=== PATIENT | female | born 1945 | race Native Hawaiian/Other Pacific Islander ===

== ENCOUNTER → 2018-06-28 11:51 | Outpatient (CLI) | payer MEDICARE, OTHER, SELFPAY ==
[2018-06-28 12:30] LABS: Reticulocyte Count, Percent 1.1 % (1.06-2.63)
[2018-06-28 12:31] LABS: Hematocrit 33.8 % (36-46); Mean Corpuscular HGB Conc 32.6 % (30-36); Mean Corpuscular Hemoglobin 30.2 PG (26-34); Mean Corpuscular Volume 92.5 fL (80-100); Platelet Count 234 X10^3/uL (150-400); Red Blood Cell Count 3.65 X10^6/uL (4.0-5.2); Red Cell Distribution Width 12.8 % (11.6-14.8); White Blood Cell Count 5.9 X10^3/uL (4.5-11.0)
[2018-06-28 18:06] LABS: Hemoglobin A1C% w Est Avg Glu 6.9 % (4.0-6.0)
[2018-06-28 18:39] LABS: BUN Creatinine Ratio 16.8 (6-22); Blood Urea Nitrogen 47 mg/dL (7-17); Calcium 8.7 mg/dL (8.4-10.2); Carbon Dioxide 23 mmol/L (22-32); Chloride 109 mmol/L (98-107); Estimated Glomerular Filt Rate 16.7 mL/min (>60); Glucose 133 mg/dL (80-110); HEMOLYSIS < 15 (0-50); Sodium 148 mmol/L (137-145)
[2018-06-28 18:41] LABS: Potassium 5.7 mmol/L (3.4-5.1)
[2018-06-28 19:44] LABS: Folate 13.9 ng/mL (2.76-20.0); Vitamin B12 361 pg/mL (239-931)
== END ==
PROVIDERS: PCP Student in an Organized Health Care Education/Training Program; Visit Provider Student in an Organized Health Care Education/Training Program
DX: D64.9 Anemia, unspecified (principal); N17.9 Acute kidney failure, unspecified; N18.9 Chronic kidney disease, unspecified; E55.9 Vitamin D deficiency, unspecified; F03.90 Unspecified dementia, unspecified severity, without behavioral disturbance, psychotic disturbance, mood disturbance, and anxiety; E11.9 Type 2 diabetes mellitus without complications
CPT/HCPCS: 36415; 80048; 82306; 82607; 82728; 82746; 83036; 85027; 85045

== ENCOUNTER → 2018-07-16 11:21 | Outpatient (CLI) | payer MEDICARE, OTHER, SELFPAY | PROVIDERS: Family Provider Family Medicine; PCP Student in an Organized Health Care Education/Training Program; Visit Provider Student in an Organized Health Care Education/Training Program | DX: Z13.820 Encounter for screening for osteoporosis (principal); M81.0 Age-related osteoporosis without current pathological fracture; Z78.0 Asymptomatic menopausal state; Z87.891 Personal history of nicotine dependence | CPT/HCPCS: 77080 ==

== ENCOUNTER 2018-12-28 06:49 | Day surgery (SDC) | payer MEDICARE, OTHER, SELFPAY ==
[2018-12-28] VITALS (8 sets, daily range): BP systolic 150–196; BP diastolic 73–91; PULSE 64–96; RESP 12–16; TEMP 35.9–36.2; O2SAT 97–100; BMI 21.6
--- NOTE | 2018-12-28 | PATH_ITS ---
[facility] Accession Number: [id number] . 01 Material submitted: . colon - COLON POLYP BIOPSY AT 10CM . 02 Diagnosis: Colon, Polyp at 10 cm, Biopsy: Hyperplastic polyp. [facility]/12/29/2018 . 02 Electronically signed: . Jacquie Rivas MD, Pathologist NPI- [id number] . 01 Gross description: . COLON POLYP BIOPSY AT 10CM: Received in formalin are 2 fragment(s) of quarles, soft tissue measuring 0.2 x 0.2 x 0.2 cm to 0.6 x 0.2 x 0.1 cm which is entirely submitted and submitted entirely in 1 cassette(s) /DMC /DMC . 02 Pathologist provided ICD-10: K63.5 . 02 CPT . 564714 Performed at: 01 [facility] [address] [id number] MD Pilo Parekh MD Phone: [phone] Performed at: 02 [facility] [address] [place], [place] [id number] MD Jacquie Rivas MD Phone: [phone]
[2018-12-28] MEDS: SODIUM CHLORIDE 0.9% 1,000 ML 200 ML IV (07:35)
[2018-12-28] MEDS: MIDAZOLAM 5 MG/5 ML VIAL IV (07:53)
[2018-12-28] MEDS: fentaNYL 250 MCG/5 ML INJ IV (07:54)
--- NOTE | 2018-12-28 08:01 | PM.HP.1 ---
History of Present Illness Date Patient Seen: 12/28/18 Time Patient Seen: 08:01 Chief complaint: [id number] SCREENING COLONOSCOPY Narrative: Patient is here for a screening colonoscopy. Patient History Medical History Eczema (Chronic) Dementia with behavioral disturbance (09/06/15) Essential hypertension (Chronic 09/06/15) Failure to thrive in adult (09/06/15) History of stroke (09/06/15) Mixed hyperlipidemia (09/06/15) Osteoporosis (09/06/15) Type 2 diabetes mellitus without complication (Chronic 09/06/15) Balance problems (11/04/16) Weakness of both lower extremities (11/04/16) Agitation (10/16/17) Cramps of lower extremity (Chronic 11/02/17) Anorexia (Chronic ~2014) B12 deficiency (Chronic) Chronic renal insufficiency (Chronic) Dementia (Chronic) Diabetes (Chronic) Glaucoma (Chronic) Hyperlipemia (Chronic) Hypertension (Chronic) Macular degeneration, dry (Chronic) Osteoporosis (Chronic) Stroke (Chronic ~1991) Surgical History History of cataract removal with insertion of prosthetic lens (2007) Status post cholecystectomy (1979) Status post dilation and curettage (1979) Family History Father No problems noted. Mother No problems noted. Social History household members: spouse Smoking Status: Never smoker Family & Social History Family History Father No problems noted. Mother No problems noted. Social History: household members spouse Tobacco & Substance use: Smoking Status Never smoker Meds Home Medications Medication Instructions Recorded Confirmed Type Walker: Four Wheel 0 dev #1 09/29/16 06/22/18 Rx Disabled Parking Permit ea #1 03/26/17 06/22/18 Rx clotrimazole-betamethasone 1 1 applictn TOP BID #45 gram 03/18/18 06/22/18 Rx %-0.05 % topical cream cyclobenzaprine 10 mg tablet 10 mg PO DAILY PRN #30 tab 11/29/18 Rx Allergies Allergy/AdvReac Type Severity Reaction Status Date / Time No Known Drug Allergies Allergy Verified 12/28/18 07:12 Review of Systems Review of Systems Patient suffers from hypertension. She has had a stroke that has left her with difficulty walking and a little dementia. She uses a walker at home. No chest pain actively. She is a diabetic. Her sugars 147 this morning. Patient has a history of kidney stones. Exam Vital Signs (past 8 hours): - 12/28/18 07:27 Temperature 97.1 F L Pulse Rate 96 H Respiratory Rate 16 Blood Pressure 196/91 H Pulse Oximetry 99 Oxygen Delivery Method Room Air Narrative Exam Narrative: Pleasant cooperative patient no apparent distress. Lungs are clear to auscultation. No rales or rhonchi. Heart regular rate and rhythm no murmur gallop. Abdomen is soft nontender without mass. No obvious hernias. Patient is alert and oriented x3. Walks with a walker. Quite frail. Assessment & Plan Assessment & Plan narrative: The patient for a screening colonoscopy. I have discussed the procedure with them. Risks of bleeding, perforation which would necessitate major operation, failure to find remove all lesions, the potential tattoo were all discussed. All questions were answered. They wished to proceed.
--- NOTE | 2018-12-28 08:04 | PM.PREOP ---
Pre-operative Note Interval Note History & Physical reviewed/Exam performed by Physician: Yes Changes to H&P: No ASA Class (for procedural sedation): III
--- NOTE | 2018-12-28 08:48 | PM.OP.ENDO ---
Operative Date/Time/Diagnoses Date of procedure: 12/28/18 Time of procedure: 08:48 Pre-op diagnosis: Screening examination. Last colonoscopy 15-20 years ago. Post-op diagnosis: same (Sigmoid diverticulosis. One tiny polyp like lesion in the rectum. May not be neoplastic.) Procedure & Clinicians Study performed: Colonoscopy with cold biopsy Same procedure as scheduled: Yes Indications: Screening Surgeon: Damion Jiemnez Procedure Notes SCOAP/Timeout: Performed Procedure in detail: The patient was placed in the left lateral decubitus position and underwent IV sedation directed by the surgeon consisting of fentanyl and Versed. Digital exam was remarkable for lax sphincter. No palpable masses.. The scope was inserted and advanced through the rectum into the sigmoid, descending, transverse, and ascending colon. In the sigmoid I noted diverticulosis. The colon was somewhat tortuous. Pressure was applied.. The cecum was reached identified by the ileocecal valve and the appendiceal opening. The scope was gradually brought out. One Polyp was found at 10 cm from the anal verge. I attempted to retroflex the scope in the rectum. I was unable to do soap. Therefore I slowly withdrew the scope through the anal canal. The appearance was normal. The scope was removed and the patient tolerated the procedure well. The prep was very good. Scope withdrawal time: 12 min excludes biopsy time Sedation minutes: 32 Findings: diverticulosis (Sigmoid) and polyp (Possible polyp at 10 cm. ) Specimen(s): other (Possible polyp) Complications: none Recommendations: Other recommendation (If polyp neoplastic 5 year follow-up. If not neoplastic then no follow-up due to age and overall health) Plan for aftercare: Patient should see family doctor soon regarding elevated blood pressure a and sugars. Follow up: as needed Disposition: PACU
[2018-12-28] MEDS: ONDANSETRON 4 MG/2 ML INJ IV (09:06)
--- NOTE | 2018-12-28 09:10 | SUR.PHASEI ---
pt vomited small amt of light green fluid. Medicated with zofran per Dr. Jimenez.
== END 2018-12-28 10:55 | disposition home or self-care (01) ==
PROVIDERS: PCP Student in an Organized Health Care Education/Training Program; Visit Provider Specialist
PROC: 0DJD8ZZ Inspection of Lower Intestinal Tract, Via Natural or Artificial Opening Endoscopic (ICD-10-PCS; CPT 45378; principal; 2018-12-28 07:45)
DX: Z12.11 Encounter for screening for malignant neoplasm of colon (principal); K57.30 Diverticulosis of large intestine without perforation or abscess without bleeding; I10 Essential (primary) hypertension; E11.9 Type 2 diabetes mellitus without complications; I69.311 Memory deficit following cerebral infarction; I69.398 Other sequelae of cerebral infarction; K63.5 Polyp of colon
CPT/HCPCS: 45380; 88305; 99152; 99153; J2250; J2405; J3010

== ENCOUNTER → 2019-02-14 11:50 | Outpatient (CLI) | payer MEDICARE, OTHER, SELFPAY ==
[2019-02-14 12:43] LABS: Blood Urea Nitrogen 60 mg/dL (7-17); Calcium 9.1 mg/dL (8.4-10.2); Carbon Dioxide 23 mmol/L (22-32); Chloride 109 mmol/L (98-107); Estimated Glomerular Filt Rate 15.4 mL/min (>60); Glucose 123 mg/dL (80-110); HEMOLYSIS < 15 (0-50); Sodium 142 mmol/L (137-145)
[2019-02-14 12:44] LABS: Potassium 5.8 mmol/L (3.4-5.1)
[2019-02-14 14:58] LABS: Hemoglobin A1C% w Est Avg Glu 6.6 % (4.0-6.0)
== END ==
PROVIDERS: PCP Student in an Organized Health Care Education/Training Program; Visit Provider Student in an Organized Health Care Education/Training Program
DX: E11.9 Type 2 diabetes mellitus without complications (principal); N18.9 Chronic kidney disease, unspecified
CPT/HCPCS: 36415; 80048; 83036

== ENCOUNTER 2019-04-18 16:10 | Emergency (ER) | payer MEDICARE, OTHER, SELFPAY ==
[2019-04-18 16:18] VITALS: BP 143/58; PULSE 71; RESP 24; TEMP 36.6; O2SAT 100
--- NOTE | 2019-04-18 17:13 | ED_ITS ---
HPI - Abdominal Pain General Chief Complaint: Abdominal Pain Stated Complaint: upset stomach and pains in tears Time Seen by Provider: 04/18/19 17:10 Source: patient Mode of arrival: ambulatory Limitations: no limitations History of Present Illness HPI narrative: Patient is 74-year-old female who presents with epigastric pain and vomiting and chest pain. Her states this is about the 3rd episode she has had of this past few weeks. This apparently started today. She just started vomiting since she has been in the emergency department. But she is quite uncomfortable and actively vomiting. She has not had any fever chills. complaint: abdominal pain Onset (ago): hour(s) Pain Consistency: constant Location: epigastric Quality: cramping Migration to: no migration Relieving factors: nothing Exacerbating factors: nothing Related Data Home Medications Medication Instructions Recorded Confirmed Disabled Parking Permit 1 ea MISCELLANEOUS DIRECTED 04/18/19 04/18/19 Vitamin D3 1 cap PO DAILY 04/18/19 04/18/19 Walker: Four Wheel 1 dev MISCELLANEOUS DIRECTED 04/18/19 04/18/19 amlodipine 7.5 mg PO QPM 04/18/19 04/18/19 cyclobenzaprine 10 mg PO QPM 04/18/19 04/18/19 latanoprost 1 drp EYE-LEFT DAILY 04/18/19 04/18/19 Allergies Allergy/AdvReac Type Severity Reaction Status Date / Time No Known Drug Allergies Allergy Verified 01/07/19 14:10 Review of Systems Review of Systems Narrative: GENERAL: Denies chills, fatigue, malaise, fever, sweats, travel HEENT: Denies sinus pain, ear pain, sore throat, difficulty swallowing, neck pain RESPIRATORY: Denies dyspnea, cough, wheezing, hemoptysis, sputum. CARDIOVASCULAR: See HPI GASTROINTESTINAL: See HPI : Denies dysuria, frequency, incontinence, hematuria, urinary retention, flank pain. MUSCULOSKELETAL: Denies weakness, joint pain, or bony pain SKIN: No rash, no erythema, no pruritus NEUROLOGIC: Denies weakness, dizziness, headache, numbness, change in speech, confusion PSYCHIATRIC: No concerning psychosocial issues. 12 point review of systems is negative except for those stated above and HPI PFSH Medical History Agitation (10/16/17) Anorexia (Chronic ~2014) B12 deficiency (Chronic) Balance problems (11/04/16) Chronic renal insufficiency (Chronic) Cramps of lower extremity (Chronic 11/02/17) Dementia (Chronic) Dementia with behavioral disturbance (09/06/15) Diabetes (Chronic) Eczema (Chronic) Essential hypertension (Chronic 09/06/15) Failure to thrive in adult (09/06/15) Glaucoma (Chronic) History of stroke (09/06/15) Hyperlipemia (Chronic) Hypertension (Chronic) Macular degeneration, dry (Chronic) Mixed hyperlipidemia (09/06/15) Osteoporosis (09/06/15) Osteoporosis (Chronic) Stroke (Chronic ~1991) Type 2 diabetes mellitus without complication (Chronic 09/06/15) Weakness of both lower extremities (11/04/16) Surgical History History of cataract removal with insertion of prosthetic lens (2007) Status post cholecystectomy (1979) Status post dilation and curettage (1979) Family History Father No problems noted. Mother No problems noted. Social History household members: spouse Smoking Status: Never smoker Family History Father No problems noted. Mother No problems noted. Social History household members: spouse Smoking Status: Never smoker Exam Initial Vital Signs Initial Vital Signs: Vital Signs Temperature 97.9 F 04/18/19 16:18 Pulse Rate 71 04/18/19 16:18 Respiratory Rate 24 04/18/19 16:18 Blood Pressure 143/58 H 04/18/19 16:18 Pulse Oximetry 100 04/18/19 16:18 GENERAL: Actively vomiting at thin frail elderly female HEENT: Head atraumatic,EOMI, pupils reactive, face symmetric, CARDIOVASCULAR: Regular rate and rhythm without murmurs, rubs or gallops. RESPIRATORY: Breath sounds equal bilaterally, no wheezes rales or rhonchi. ABDOMEN: Soft, tender epigastric area Normoactive bowel sounds all 4 quadrants. No guarding or rebound. : No CVA tenderness EXTREMITIES: Normal range of motion, no clubbing or edema. Neurovascularly intact NEUROLOGICAL: Moving all extremities no gross deficits SKIN: Warm, dry, no laceration, no petechiae, no rashes or lesions. Course Orders Ordered: ED Orders 04/18/19 16:26 EKG-12 Lead Routine 04/18/19 16:50 Complete Blood Count AUTO DIFF Stat Comprehensive Metabolic Panel Stat Lipase Stat Troponin & CK Cardiac Panel Stat 04/18/19 17:43 CT abdomen pelvis wo con Stat US abdomen limited Stat Lactated Ringer's (Lactated Ringers) 1,000 mls @ 250 mls/hr IV CONT MORGAN Last Admin: 04/18/19 19:38 Dose: 250 mls/hr Documented by: SHER Discontinued Medications Sodium Chloride (Normal Saline 0.9%) 1,000 mls @ 1,000 mls/hr IV BOLUS ONE Stop: 04/18/19 18:20 Last Infusion: 04/18/19 19:39 Dose: 0 mls/hr Documented by: Admin: 04/18/19 17:36 Dose: 1,000 mls/hr Documented by: TAPAN Sodium Chloride (Normal Saline 0.9%) 1,000 mls @ 1,000 mls/hr IV BOLUS ONE Stop: 04/18/19 19:20 Last Infusion: 04/18/19 19:39 Dose: 0 mls/hr Documented by: Admin: 04/18/19 18:57 Dose: 1,000 mls/hr Documented by: TAPAN Morphine Sulfate (Morphine) 2 mg IV NOW ONE Stop: 04/18/19 18:23 Last Admin: 04/18/19 18:57 Dose: 2 mg Documented by: TAPAN Ondansetron HCl (Zofran) 4 mg IV NOW ONE Stop: 04/18/19 17:22 Last Admin: 04/18/19 17:36 Dose: 4 mg Documented by: TAPAN Consultations Consultation #1: dR. Shiv MORTON at [facility] agrees with transfer and patient does likely needed ERCP. Request disc and images pushed along with reports. Admit to hospitalist. Time: 19:21 Consultation #2: Dr. Deidra Roca hospitalist at [facility] has been updated patient's symptoms test results and accepts patient for transfer. Time: 19:42 Vital Signs Vital signs: Vital Signs - 8 hr 04/18/19 16:18 04/18/19 17:32 04/18/19 19:12 Temperature 97.9 F Pulse Rate 71 18 L 92 H Respiratory Rate 24 80 H 23 Blood Pressure 143/58 H Blood Pressure [Right Arm] 145/70 H 170/63 H Pulse Oximetry 100 93 96 MDM - Abdominal Pain Lab Data Attestation: I reviewed the patient's lab results. Result diagrams: 04/18/19 16:50 04/18/19 16:50 Labs: Lab Results 04/18/19 04/18/19 04/18/19 Range/Units 16:50 16:50 16:50 WBC 9.1 (4.5-11.0) X10^3/uL RBC 3.22 L (4.0-5.2) X10^6/uL Hgb 9.7 L (12.0-16.0) g/dL Hct 29.6 L (36-46) % MCV 91.8 (80-100) fL MCH 30.0 (26-34) PG MCHC 32.7 (30-36) % RDW 14.3 (11.6-14.8) % Plt Count 378 (150-400) X10^3/uL Neut % (Auto) 89.6 H (50-75) % Lymph % (Auto) 4.5 L (25-40) % Coffey % (Auto) 4.8 (3-14) % Eos % (Auto) 0.5 L (2-4) % Baso % (Auto) 0.6 (0-2) % Neut # (Auto) 8200 H (4014-9478) /uL Lymph # (Auto) 400 L (2339-9153) /uL Coffey # (Auto) 400 (0-900) /uL Eos # (Auto) 0 (0-450) /uL Baso # (Auto) 100 (0-100) /uL Sodium 142 (137-145) mmol/L Potassium 5.0 (3.4-5.1) mmol/L Chloride 108 H (98-107) mmol/L Carbon Dioxide 19 L (22-32) mmol/L BUN 52 H (7-17) mg/dL Creatinine 3.30 H (0.52-1.04) mg/dL Estimated GFR 13.7 L (>60) mL/min BUN/Creatinine Ratio 15.8 (6-22) Glucose 303 H (80-110) mg/dL Calcium 9.4 (8.4-10.2) mg/dL Total Bilirubin 2.2 H (0.2-1.3) mg/dL AST 153 H (14-36) IU/L ALT 158 H (9-52) IU/L Alkaline Phosphatase 276 H (38-126) U/L Total Creatine Kinase 33 (30-135) U/L CK-MB (CK-2) TNP CK-MB (CK-2) Rel Index TNP Troponin I < 0.012 (0.01-0.034) ng/mL Total Protein 7.7 (6.3-8.2) g/dL Albumin 4.1 (3.5-5.0) g/dL Globulin 3.6 (1.7-4.1) g/dL Albumin/Globulin Ratio 1.1 (1.0-2.8) Lipase 2698 H (23-300) U/L Imaging Data CT scan - abdomen: Radiologist's impression: PROCEDURE: CT ABDOMEN PELVIS WO CON INDICATIONS: vomiting pain TECHNIQUE: Noncontrast 5 mm thick sections acquired from the diaphragms to the symphysis. 5 mm coronal and sagittal reformats were then performed. For radiation dose reduction, the following was used: automated exposure control, adjustment of mA and/or kV according to patient size. COMPARISON: [facility], , ABDOMEN LIMITED, 04/18/2019, 17:53. FINDINGS: Image quality: Excellent. ABDOMEN: Lung bases: Lung bases are clear. Heart size is normal. A small hiatal hernia is incidentally noted. Solid organs: Liver is normal in size. Gallbladder has been removed. Biliary dilatation is seen, which is more prominent than would be expected for a post cholecystectomy patient, measuring approximately 1.4 cm. There is prominent intrahepatic biliary ductal dilatation seen. Pancreas is normal in contours. Spleen is normal in size. No adrenal nodules. The kidneys are atrophic. No stones are seen. No hydronephrosis can be seen. Peritoneum and bowel: Unenhanced bowel loops demonstrate normal wall thickness and caliber. No free fluid or air. Nodes and vessels: No retroperitoneal or mesenteric adenopathy by size criteria. Aorta and inferior vena cava are normal in caliber. Atherosclerotic calcification is noted. Miscellaneous: No ventral hernias. PELVIS: Genitourinary: Bladder wall thickness is normal. The uterus is atrophic and partially calcified. Miscellaneous: No inguinal hernias or adenopathy. Bones: No suspicious bony lesions. No vertebral body compression fractures. There is right proximal femur hardware seen. Mild levoconvex scoliotic curvature is noted. Age-appropriate bony degenerative changes are seen, which are most prominent involving the L5-S1 level. IMPRESSION: Extrahepatic and intrahepatic biliary ductal dilatation can be seen, which is more prominent than would be expected for a post cholecystectomy patient. As clinically appropriate, an MRCP could be considered for further evaluation (assuming that there is no contraindication to MRI). Incidental note is made of: Small hiatal hernia Atrophic kidneys Cholecystectomy clips Atherosclerotic calcification Atrophic, partially calcified uterus Levoconvex scoliotic curvature Focal L5-S1 degenerative change Right proximal femur hardware Dictated by: Arnaldo Barrios M.D. on 04/18/2019 at 17:24 US - abdomen: Radiologist's impression: PROCEDURE: US ABDOMEN LIMITED INDICATIONS: PAIN WITH ELEVATED LIVER ENZYMES TECHNIQUE: Real-time focused scanning was performed of the right upper quadrant, with image documentation. COMPARISON: [facility], CT, CT ABDOMEN PELVIS WO CON, 04/18/2019, 18:11. FINDINGS: The gallbladder is surgically absent. There is intra-and extrahepatic biliary ductal dilatation. The common bile duct measures up to 1.5 cm distally with an ovoid filling defect distally measuring up to 1.9 x 1.1 x 0.9 cm suggestive of a common duct stone. No associated internal vascularity or posterior acoustic shadowing. The right kidney measures up to 8.5 cm without hydronephrosis. There is right renal cortical thinning noted. There is also increased echogenicity of the right renal cortex. IMPRESSION: 1. Biliary ductal dilatation with a filling defect in the distal common bile duct suggestive of a large common duct stone. The differential is a mass although the appearance is atypical. 2. Small right kidney with increased cortical echogenicity suggestive of medical renal disease. Dictated by: Pilo Ramos M.D. on 04/18/2019 at 18:40 ECG Data Attestation: I personally reviewed and interpreted this ECG as follows: Prior ECG tracings: not available for review Interpretation: Sinus rhythm rate 60 p.r. interval 201 QRS 80 [address] changes or Q-wave noted in lead 3 and AVF MDM Narrative Medical decision making narrative: Bilirubin liver enzymes and lipase are all elevated. Ultrasound does show large stone in common bile duct. Patient will likely need ERCP which is unavailable at [facility]. Patient did receive a small amount of morphine which seemed to help a little bit with pain. She is urinating in the emergency department.. Patient will be transferred to [facility] to higher level of care. She is hemodynamically stable. Critical Care Time Critical Care Time Critical Care Time: Yes Total Critical Care Time: 30 Attestation: The high probability of a clinically significant, sudden or life threatening deterioration of the [cardiovascular] system(s) required my full and direct attention, intervention and personal management. The aggregate critical care time was 30 minutes. This time is in addition to time spent performing re ported procedures but includes the following: [x] Data Review and interpretation [x] Patient assessment and monitoring of vital signs [x] Documentation [x] Medication orders and management Discharge Plan Departure Patient Disposition: [facility] Clinical Impression: Choledocholithiasis Acute pancreatitis Qualifiers: Pancreatitis type: biliary Acute pancreatitis complication: unspecified Qual ified Code(s): K85.10 - Biliary acute pancreatitis without necrosis or infection Prescriptions: No Action amlodipine 5 mg tablet 7.5 mg PO QPM RF: 0 Vitamin D3 1 cap PO DAILY RF: 0 cyclobenzaprine 10 mg tablet 10 mg PO QPM RF: 0 Disabled Parking Permit 1 ea miscellaneous DIRECTED RF: 0 Walker: Four Wheel 1 dev miscellaneous DIRECTED RF: 0 latanoprost 0.005 % drops 1 drp EYE-LEFT DAILY RF: 0 Referrals: Norm Arreola MD [Primary Care Provider] -
[2019-04-18 17:15] LABS: Alanine Aminotransferase 158 IU/L (9-52); Albumin 4.1 g/dL (3.5-5.0); Albumin Globulin Ratio 1.1 (1.0-2.8); Alkaline Phosphatase 276 U/L (38-126); Aspartate Aminotransferase 153 IU/L (14-36); BUN Creatinine Ratio 15.8 (6-22); Bilirubin Total 2.2 mg/dL (0.2-1.3); Blood Urea Nitrogen 52 mg/dL (7-17); Calcium 9.4 mg/dL (8.4-10.2); Carbon Dioxide 19 mmol/L (22-32); Chloride 108 mmol/L (98-107); Creatine Kinase 33 U/L (30-135); Estimated Glomerular Filt Rate 13.7 mL/min (>60); Globulin 3.6 g/dL (1.7-4.1); Glucose 303 mg/dL (80-110); HEMOLYSIS < 15 (0-50); Sodium 142 mmol/L (137-145); Total Protein 7.7 g/dL (6.3-8.2)
[2019-04-18 17:21] LABS: Add Manual Diff / Slide Review NO; Basophils Absolute Auto 100 /uL (0-100); Basophils Percent Auto 0.6 % (0-2); Eosinophils Absolute Auto 0 /uL (0-450); Eosinophils Percent Auto 0.5 % (2-4); Hematocrit 29.6 % (36-46); Hemoglobin 9.7 g/dL (12.0-16.0); Lymphocytes Absolute Auto 400 /uL (1100-4500); Lymphocytes Percent Auto 4.5 % (25-40); Mean Corpuscular HGB Conc 32.7 % (30-36); Mean Corpuscular Volume 91.8 fL (80-100); Monocytes Absolute Auto 400 /uL (0-900); Monocytes Percent Auto 4.8 % (3-14); Neutrophils Absolute Auto 8200 /uL (1500-7000); Neutrophils Percent Auto 89.6 % (50-75); Platelet Count 378 X10^3/uL (150-400); Red Blood Cell Count 3.22 X10^6/uL (4.0-5.2); Red Cell Distribution Width 14.3 % (11.6-14.8); White Blood Cell Count 9.1 X10^3/uL (4.5-11.0)
[2019-04-18 17:27] LABS: Troponin I < 0.012 ng/mL (0.01-0.034)
[2019-04-18 17:32] VITALS: BP 145/70; PULSE 18; RESP 80; O2SAT 93
[2019-04-18] MEDS: SODIUM CHLORIDE 0.9% 1,000 ML 1000 ML IV ×2 (17:36→18:57)
[2019-04-18] MEDS: ONDANSETRON 4 MG/2 ML INJ IV (17:36)
--- NOTE | 2019-04-18 17:43 | DI.US.S_ITS ---
PROCEDURE: US ABDOMEN LIMITED INDICATIONS: PAIN WITH ELEVATED LIVER ENZYMES TECHNIQUE: Real-time focused scanning was performed of the right upper quadrant, with image documentation. COMPARISON: [facility], CT, CT ABDOMEN PELVIS WO CON, 04/18/2019, 18:11. FINDINGS: The gallbladder is surgically absent. There is intra-and extrahepatic biliary ductal dilatation. The common bile duct measures up to 1.5 cm distally with an ovoid filling defect distally measuring up to 1.9 x 1.1 x 0.9 cm suggestive of a common duct stone. No associated internal vascularity or posterior acoustic shadowing. The right kidney measures up to 8.5 cm without hydronephrosis. There is right renal cortical thinning noted. There is also increased echogenicity of the right renal cortex. IMPRESSION: 1. Biliary ductal dilatation with a filling defect in the distal common bile duct suggestive of a large common duct stone. The differential is a mass although the appearance is atypical. 2. Small right kidney with increased cortical echogenicity suggestive of medical renal disease. Dictated by: Pilo Ramos M.D. on 04/18/2019 at 18:40 Approved by: Pilo Ramos M.D. on 04/18/2019 at 18:44
--- NOTE | 2019-04-18 17:43 | DI.CT.S_ITS ---
PROCEDURE: CT ABDOMEN PELVIS WO CON INDICATIONS: vomiting pain TECHNIQUE: Noncontrast 5 mm thick sections acquired from the diaphragms to the symphysis. 5 mm coronal and sagittal reformats were then performed. For radiation dose reduction, the following was used: automated exposure control, adjustment of mA and/or kV according to patient size. COMPARISON: [facility], ABDOMEN LIMITED, 04/18/2019, 17:53. FINDINGS: Image quality: Excellent. ABDOMEN: Lung bases: Lung bases are clear. Heart size is normal. A small hiatal hernia is incidentally noted. Solid organs: Liver is normal in size. Gallbladder has been removed. Biliary dilatation is seen, which is more prominent than would be expected for a post cholecystectomy patient, measuring approximately 1.4 cm. There is prominent intrahepatic biliary ductal dilatation seen. Pancreas is normal in contours. Spleen is normal in size. No adrenal nodules. The kidneys are atrophic. No stones are seen. No hydronephrosis can be seen. Peritoneum and bowel: Unenhanced bowel loops demonstrate normal wall thickness and caliber. No free fluid or air. Nodes and vessels: No retroperitoneal or mesenteric adenopathy by size criteria. Aorta and inferior vena cava are normal in caliber. Atherosclerotic calcification is noted. Miscellaneous: No ventral hernias. PELVIS: Genitourinary: Bladder wall thickness is normal. The uterus is atrophic and partially calcified. Miscellaneous: No inguinal hernias or adenopathy. Bones: No suspicious bony lesions. No vertebral body compression fractures. There is right proximal femur hardware seen. Mild levoconvex scoliotic curvature is noted. Age-appropriate bony degenerative changes are seen, which are most prominent involving the L5-S1 level. IMPRESSION: Extrahepatic and intrahepatic biliary ductal dilatation can be seen, which is more prominent than would be expected for a post cholecystectomy patient. As clinically appropriate, an MRCP could be considered for further evaluation (assuming that there is no contraindication to MRI). Incidental note is made of: Small hiatal hernia Atrophic kidneys Cholecystectomy clips Atherosclerotic calcification Atrophic, partially calcified uterus Levoconvex scoliotic curvature Focal L5-S1 degenerative change Right proximal femur hardware Dictated by: Arnaldo Barrios M.D. on 04/18/2019 at 17:24 Approved by: Arnaldo Barrios M.D. on 04/18/2019 at 17:28
[2019-04-18 18:06] LABS: Lipase 2698 U/L (23-300)
[2019-04-18] MEDS: MORPHINE 2 MG/ML INJ IV (18:57)
[2019-04-18 19:12] VITALS: BP 170/63; PULSE 92; RESP 23; O2SAT 96
[2019-04-18] MEDS: LACTATED RINGERS 1,000 ML 250 ML IV (19:38)
[2019-04-18 20:27] VITALS: TEMP 38.7
--- NOTE | 2019-04-18 20:51 | PC.NURSE ---
Temp spiked to 101.7. Dr Patterson made aware of VS and pt status. Orders received for Tylenol, blood cultures, and lactate. Pt assisted up to BSC. SpO2 dropped to 82% while up; recovered briskly to 95% Room air while in bed. Dr Patterson aware. [facility] now here for transport to [facility].
[2019-04-18 20:55] VITALS: TEMP 38.7
[2019-04-18] MEDS: ACETAMINOPHEN 325 MG TABLET 650 MG PO (20:55)
[2019-04-18 20:59] VITALS: BP 168/57; PULSE 110; RESP 26; O2SAT 95
[2019-04-18 21:19] LABS: Lactate (Lactic Acid) 1.9 mmol/L (0.7-2.1)
--- NOTE | 2019-04-18 21:40 | PC.NURSE ---
Report called to [facility] RN Ana at [phone]
[2019-04-19 16:15] LABS: Acinetobacter baumannii Not Detected (Not Detect); E. coli Detected (Not Detect); Enterococcus species Not Detected (Not Detect); KPC (carbapenem-resist gene) Not Detected (Not Detect); Listeria monocytogenes Not Detected (Not Detect); Staphylococcus species Not Detected (Not Detect); Streptococcus agalactiae (Gr B Not Detected (Not Detect); Streptococcus pneumonia Not Detected (Not Detect); Streptococcus pyogenes (Gr A) Not Detected (Not Detect); Streptococcus species Not Detected (Not Detect)
[2019-04-19 16:16] LABS: Candida albicans Not Detected (Not Detect); Candida glabrata Not Detected (Not Detect); Candida krusei Not Detected (Not Detect); Candida parapsilosis Not Detected (Not Detect); Candida tropicalis Not Detected (Not Detect); Enterobacter cloacae complex Not Detected (Not Detect); Enterobacteriaceae species Detected (Not Detect); Haemophilus influenzae Not Detected (Not Detect); Neisseria meningitidis Not Detected (Not Detect); Proteus species Not Detected (Not Detect); Pseudomonas aeruginosa Not Detected (Not Detect); Serratia marcescens Not Detected (Not Detect)
--- NOTE | 2019-05-09 14:21 | PC.NURSE ---
Late entry - per Audra Vivas RN, IV LR running upon transfer at 2106 at 250mL per hour with 500mL infused.
== END 2019-04-18 21:21 | disposition short-term general hospital (02) ==
PROVIDERS: Emergency Medicine; Emergency Provider Emergency Medicine; PCP Student in an Organized Health Care Education/Training Program
DX: K80.50 Calculus of bile duct without cholangitis or cholecystitis without obstruction (principal); K85.10 Biliary acute pancreatitis without necrosis or infection; R11.10 Vomiting, unspecified; R07.9 Chest pain, unspecified
CPT/HCPCS: 36415; 36591; 74176; 76705; 80053; 82550; 83605; 83690; 84484; 85025; 87040; 87150; 87186; 87205; 93005; 93010; 96361; 96374; 96375; 99285; J2270; J2405

== ENCOUNTER → 2019-04-28 11:41 | Outpatient (CLI) | payer MEDICARE, OTHER, SELFPAY ==
[2019-04-28 12:11] LABS: Add Manual Diff / Slide Review NO; Basophils Absolute Auto 100 /uL (0-100); Eosinophils Absolute Auto 100 /uL (0-450); Eosinophils Percent Auto 1.3 % (2-4); Hematocrit 27.1 % (36-46); Lymphocytes Absolute Auto 800 /uL (1100-4500); Lymphocytes Percent Auto 15.1 % (25-40); Mean Corpuscular HGB Conc 33.3 % (30-36); Mean Corpuscular Hemoglobin 30.2 PG (26-34); Mean Corpuscular Volume 90.7 fL (80-100); Monocytes Absolute Auto 400 /uL (0-900); Monocytes Percent Auto 7.9 % (3-14); Neutrophils Absolute Auto 4200 /uL (1500-7000); Neutrophils Percent Auto 74.7 % (50-75); Platelet Count 286 X10^3/uL (150-400); Red Blood Cell Count 2.99 X10^6/uL (4.0-5.2); Red Cell Distribution Width 14.4 % (11.6-14.8); White Blood Cell Count 5.6 X10^3/uL (4.5-11.0)
[2019-04-28 12:38] LABS: Alanine Aminotransferase 65 IU/L (9-52); Albumin 3.8 g/dL (3.5-5.0); Albumin Globulin Ratio 1.3 (1.0-2.8); Alkaline Phosphatase 101 U/L (38-126); Aspartate Aminotransferase 43 IU/L (14-36); BUN Creatinine Ratio 12.7 (6-22); Bilirubin Total 0.9 mg/dL (0.2-1.3); Blood Urea Nitrogen 33 mg/dL (7-17); Calcium 9.3 mg/dL (8.4-10.2); Carbon Dioxide 21 mmol/L (22-32); Chloride 107 mmol/L (98-107); Estimated Glomerular Filt Rate 18.1 mL/min (>60); Globulin 2.9 g/dL (1.7-4.1); Glucose 168 mg/dL (80-110); HEMOLYSIS < 15 (0-50); Potassium 3.9 mmol/L (3.4-5.1); Sodium 140 mmol/L (137-145); Total Protein 6.7 g/dL (6.3-8.2)
== END ==
PROVIDERS: PCP Student in an Organized Health Care Education/Training Program; Visit Provider Student in an Organized Health Care Education/Training Program
DX: K80.50 Calculus of bile duct without cholangitis or cholecystitis without obstruction (principal); K85.90 Acute pancreatitis without necrosis or infection, unspecified; N18.9 Chronic kidney disease, unspecified
CPT/HCPCS: 36415; 80053; 85025

== ENCOUNTER 2019-06-27 18:11 | Emergency (ER) | payer MEDICARE, OTHER, SELFPAY ==
--- NOTE | 2019-06-27 18:25 | DI.RAD.S_ITS ---
PROCEDURE: XR CHEST 1V INDICATIONS: chest pain TECHNIQUE: One view of the chest was acquired. COMPARISON: [facility], , CHEST 1 VIEW, 05/14/2015, 22:20. FINDINGS: Surgical changes and devices: None. Lungs and pleura: Lungs are clear. Prominence of the right hilum is redemonstrated, similar in appearance to the prior study, and likely reflecting vascular prominence. No pleural effusions or pneumothorax. There is a probable skin fold projecting over the medial left apex. Mediastinum: Mediastinal contours appear normal. Heart size is normal. Bones and chest wall: No suspicious bony lesions. Overlying soft tissues appear unremarkable. IMPRESSION: 1. No acute cardiopulmonary disease. Dictated by: Pilo Ramos M.D. on 06/27/2019 at 19:32 Approved by: Pilo Ramos M.D. on 06/27/2019 at 19:34
[2019-06-27 18:26] VITALS: BP 182/78; PULSE 84; RESP 20; TEMP 36.3; O2SAT 99
[2019-06-27 18:54] LABS: Add Manual Diff / Slide Review NO; Basophils Absolute Auto 0 /uL (0-100); Basophils Percent Auto 0.8 % (0-2); Eosinophils Absolute Auto 100 /uL (0-450); Hematocrit 32.7 % (36-46); Hemoglobin 10.9 g/dL (12.0-16.0); Lymphocytes Absolute Auto 1000 /uL (1100-4500); Lymphocytes Percent Auto 23.4 % (25-40); Mean Corpuscular HGB Conc 33.3 % (30-36); Mean Corpuscular Hemoglobin 30.7 PG (26-34); Mean Corpuscular Volume 92.3 fL (80-100); Monocytes Absolute Auto 300 /uL (0-900); Monocytes Percent Auto 7.7 % (3-14); Neutrophils Absolute Auto 2900 /uL (1500-7000); Neutrophils Percent Auto 66.1 % (50-75); Platelet Count 190 X10^3/uL (150-400); Red Blood Cell Count 3.54 X10^6/uL (4.0-5.2); Red Cell Distribution Width 13.7 % (11.6-14.8); White Blood Cell Count 4.3 X10^3/uL (4.5-11.0)
[2019-06-27 18:57] LABS: HEMOLYSIS < 15 (0-50)
[2019-06-27 19:04] LABS: Alanine Aminotransferase 11 IU/L (<35); Albumin 4.2 g/dL (3.5-5.0); Albumin Globulin Ratio 1.4 (1.0-2.8); Alkaline Phosphatase 47 U/L (38-126); Aspartate Aminotransferase 20 IU/L (14-36); Bilirubin Total 0.4 mg/dL (0.2-1.3); Blood Urea Nitrogen 66 mg/dL (7-17); Calcium 9.1 mg/dL (8.4-10.2); Carbon Dioxide 19 mmol/L (22-32); Chloride 110 mmol/L (98-107); Estimated Glomerular Filt Rate 15.3 mL/min (>60); Globulin 3.1 g/dL (1.7-4.1); Glucose 175 mg/dL (80-110); Potassium 4.8 mmol/L (3.4-5.1); Sodium 139 mmol/L (137-145); Total Protein 7.3 g/dL (6.3-8.2)
[2019-06-27 19:17] LABS: Troponin I 0.016 ng/mL (0.01-0.034)
--- NOTE | 2019-06-27 20:40 | ED.CHESTPAIN ---
HPI - Chest Pain General Chief Complaint: Chest Pain Stated Complaint: CHEST PAIN Time Seen by Provider: 06/27/19 18:55 Source: patient and family Mode of arrival: Ambulatory Limitations: no limitations History of Present Illness HPI narrative: 74-year-old female nonsmoker with history of hypertension presents with her in the chief complaint of anterior chest pain which started at rest a few hours prior to her arrival. She states her pain is sharp and stabbing and worse with palpation, deep breath or motion. She denies associated symptoms such as dizziness, weakness or lightheadedness. She denies nausea, vomiting or diarrhea. She denies fever or chills. She denies any recent episodes of exertional fatigue or pain. The symptoms were brief and not present during her visit. MD complaint: chest pain Onset (ago): hour(s) Duration: now resolved Onset: during rest Pain location: substernal Severity: mild Quality: sharp Pain radiation: none Relieving factors: rest Exacerbating factors: inspiration, palpation and movement Treatments prior to arrival chest pain: none Related Data On Oral Contraceptives: No Home Medications Medication Instructions Recorded Confirmed Vitamin D3 1 cap PO DAILY 04/18/19 04/28/19 cyclobenzaprine 10 mg PO QPM 04/18/19 04/28/19 latanoprost 1 drp EYE-LEFT DAILY 04/18/19 04/28/19 Previous Rx's Medication Instructions Recorded amlodipine 5 mg tablet 7.5 mg PO QPM #135 tab 06/13/19 Allergies Allergy/AdvReac Type Severity Reaction Status Date / Time No Known Drug Allergies Allergy Verified 04/28/19 11:11 Review of Systems Constitutional Constitutional: Denies chills, Denies fatigue, Denies fever(s), Denies frequent falls, Denies lethargy and Denies weakness Eyes Eyes: Denies change in vision, Denies eye discharge, Denies irritation and Denies loss of vision ENT Ears, Nose, Mouth, and Throat: Denies change in voice, Denies dizziness, Denies neck pain, Denies sore throat and Denies throat swelling Cardiovascular Cardiovascular: Reports chest pain, Denies irregular heart rhythm, Denies lightheadedness, Denies palpitations, Denies dyspnea, Denies dyspnea on exertion and Denies orthopnea Respiratory Respiratory: Denies cough, Denies dyspnea, Denies dyspnea on exertion and Denies wheezing Gastrointestinal Gastrointestinal: Denies abdominal pain, Denies change in bowel habits, Denies diarrhea, Denies nausea and Denies vomiting Genitourinary Genitourinary: Denies hematuria, Denies flank pain, Denies urinary incontinence and Denies urinary urgency Musculoskeletal Musculoskeletal: Denies back pain, Denies muscle weakness, Denies neck pain, Denies numbness and Denies tingling Integumentary/Breasts Skin/Breast: Denies pruritus, Denies erythema, Denies rash and Denies wounds Neurologic Neurologic: Denies behavioral changes, Denies confusion, Denies dizziness, Denies frequent falls, Denies loss of vision, Denies numbness, Denies tingling and Denies weakness Psychiatric Psychiatric: Denies anxiety, Denies behavioral changes, Denies confusion, Denies depression, Denies homicidal ideation and Denies suicidal ideation Endocrine Endocrine: Denies fatigue, Denies flushing and Denies palpitations Hematologic/Lymphatic Hematologic/Lymphatic: Denies easy bruising Allergic/Immunologic Allergic/Immunologic: Denies urticaria, Denies throat swelling and Denies wheezing Patient History Medical History Agitation (10/16/17) Anorexia (Chronic ~2014) B12 deficiency (Chronic) Balance problems (11/04/16) Chronic renal insufficiency (Chronic) Cramps of lower extremity (Chronic 11/02/17) Dementia (Chronic) Dementia with behavioral disturbance (09/06/15) Diabetes (Chronic) Eczema (Chronic) Essential hypertension (Chronic 09/06/15) Failure to thrive in adult (09/06/15) Glaucoma (Chronic) History of stroke (09/06/15) Hyperlipemia (Chronic) Hypertension (Chronic) Macular degeneration, dry (Chronic) Mixed hyperlipidemia (09/06/15) Osteoporosis (09/06/15) Osteoporosis (Chronic) Stroke (Chronic ~1991) Type 2 diabetes mellitus without complication (Chronic 09/06/15) Weakness of both lower extremities (11/04/16) Surgical History History of cataract removal with insertion of prosthetic lens (2007) Status post cholecystectomy (1979) Status post dilation and curettage (1979) Family History Father No problems noted. Mother No problems noted. Social History household members: spouse Smoking Status: Never smoker Exam Narrative Exam Narrative: GENERAL: [74] year old patient appears stated age. Well-nourished, well-developed patient, in mild distress. HEAD: Atraumatic. Normocephalic. EYES: Pupils equal round and reactive. Extraocular motions intact. No scleral icterus. No injection or drainage. ENT: Nose without bleeding, purulent drainage. Throat without erythema, tonsillar hypertrophy or exudate. Airway patent. NECK: Trachea midline. Non tender CARDIOVASCULAR: Regular rate and rhythm without murmurs, gallops, or rubs. Sharp, stabbing pain reproducible on palpation and deep breath. When asked the patient states these are the symptoms that made her come in. RESPIRATORY: Clear to auscultation. Breath sounds equal bilaterally. No wheezes, rales, or rhonchi. GASTROINTESTINAL: Abdomen soft, non-tender, nondistended. EXTREMITIES: No edema or joint tenderness. BACK: Nontender without deformity or crepitance. No flank tenderness. NEURO: AOx3. SKIN: No rash or erythema of visible areas Initial Vital Signs Initial Vital Signs: Vital Signs Temperature 97.3 F L 06/27/19 18:26 Pulse Rate 84 06/27/19 18:26 Respiratory Rate 20 06/27/19 18:26 Blood Pressure 182/78 H 06/27/19 18:26 Pulse Oximetry 99 06/27/19 18:26 Course Orders Ordered: ED Orders 06/27/19 18:25 XR chest 1V Stat EKG-12 Lead Stat 06/27/19 18:43 Complete Blood Count AUTO DIFF Stat Comprehensive Metabolic Panel Stat Troponin I Stat Discontinued Medications Acetaminophen (Tylenol) 650 mg PO NOW ONE Stop: 06/27/19 20:49 Last Admin: 06/27/19 20:52 Dose: 650 mg Documented by: LEXUS Vital Signs Vital signs: Vital Signs - 8 hr 06/27/19 21:58 Pulse Rate 81 Respiratory Rate 18 Blood Pressure 167/75 H Pulse Oximetry 96 MDM - Chest Pain Lab Data Result diagrams: 06/27/19 18:43 06/27/19 18:43 Labs: Lab Results 06/27/19 06/27/19 Range/Units 18:43 18:43 WBC 4.3 L (4.5-11.0) X10^3/uL RBC 3.54 L (4.0-5.2) X10^6/uL Hgb 10.9 L (12.0-16.0) g/dL Hct 32.7 L (36-46) % MCV 92.3 (80-100) fL MCH 30.7 (26-34) PG MCHC 33.3 (30-36) % RDW 13.7 (11.6-14.8) % Plt Count 190 (150-400) X10^3/uL Neut % (Auto) 66.1 (50-75) % Lymph % (Auto) 23.4 L (25-40) % Fajardo % (Auto) 7.7 (3-14) % Eos % (Auto) 2.0 (2-4) % Baso % (Auto) 0.8 (0-2) % Neut # (Auto) 2900 (0569-3296) /uL Lymph # (Auto) 1000 L (1024-2805) /uL Fajardo # (Auto) 300 (0-900) /uL Eos # (Auto) 100 (0-450) /uL Baso # (Auto) 0 (0-100) /uL Sodium 139 (137-145) mmol/L Potassium 4.8 (3.4-5.1) mmol/L Chloride 110 H (98-107) mmol/L Carbon Dioxide 19 L (22-32) mmol/L BUN 66 H (7-17) mg/dL Creatinine 3.00 H (0.52-1.04) mg/dL Estimated GFR 15.3 L (>60) mL/min BUN/Creatinine Ratio 22.0 (6-22) Glucose 175 H (80-110) mg/dL Calcium 9.1 (8.4-10.2) mg/dL Total Bilirubin 0.4 (0.2-1.3) mg/dL AST 20 (14-36) IU/L ALT 11 (<35) IU/L Alkaline Phosphatase 47 (38-126) U/L Troponin I 0.016 (0.01-0.034) ng/mL Total Protein 7.3 (6.3-8.2) g/dL Albumin 4.2 (3.5-5.0) g/dL Globulin 3.1 (1.7-4.1) g/dL Albumin/Globulin Ratio 1.4 (1.0-2.8) Imaging Data Chest x-ray: Radiologist's impression: Chart Viewer Diagnostics DATE TYPE STATUS AUTHOR Ivette 06/27/19 18:25 RachelPilo 04/18/19 17:43 Arnaldo Barrios 04/18/19 17:43 RamosPilo 12/28/18 06:49 07/16/18 11:00 Carley Tim O 74, F0 1945 [facility] ER, Main ED 45.359kg Chest Pain Search Chart No Data to Display ONSET 09/06/15 09/06/15 09/06/15 09/06/15 09/06/15 09/06/15 09/06/15 11/04/16 11/04/16 10/16/17 11/02/17 06/27/19 21:58 Carley Tim 74 F 1945 [place] [address] XRay Report Signed Patient: Carley Tim OMR#: [id number] : 1945cct:[id number] Age/Sex: 74 / FDate of Service: 06/27/19 Loc: ED Accession Number: [id number] Procedure: XR chest 1V Ordering Provider: Yoel Gibson D.O. PROCEDURE: XR CHEST 1V INDICATIONS: chest pain TECHNIQUE: One view of the chest was acquired. COMPARISON: [facility], , CHEST 1 VIEW, 05/14/2015, 22:20. FINDINGS: Surgical changes and devices: None. Lungs and pleura: Lungs are clear. Prominence of the right hilum is redemonstrated, similar in appearance to the prior study, and likely reflecting vascular prominence. No pleural effusions or pneumothorax. There is a probable skin fold projecting over the medial left apex. Mediastinum: Mediastinal contours appear normal. Heart size is normal. Bones and chest wall: No suspicious bony lesions. Overlying soft tissues appear unremarkable. IMPRESSION: 1. No acute cardiopulmonary disease. Dictated by: Pilo Ramos M.D. on 06/27/2019 at 19:32 Approved by: Pilo Ramos M.D. on 06/27/2019 at 19:34 ECG Data Attestation: I personally reviewed and interpreted this ECG as follows: Prior ECG tracings: available for review Discharge Plan Departure Patient Disposition: Home Clinical Impression: Atypical chest pain Discharge Date/Time: 06/27/19 21:58 Instructions: DI for Atypical Chest Pain Activity Restrictions/Additional Instructions: *You have been diagnosed with [ atypical chest pain, chest wall pain ] *What to do: *Take medications as directed *Follow up with your primary care provider in 2-3 days, call for an appointment. Let them know you were seen in the Emergency Department and that we ask that you be seen in follow up *Return to ER if you should have any new, worsening or concerning symptoms Prescriptions: No Action amlodipine 5 mg tablet 7.5 mg PO QPM Qty: 135 RF: 3 Vitamin D3 1 cap PO DAILY RF: 0 cyclobenzaprine 10 mg tablet 10 mg PO QPM RF: 0 latanoprost 0.005 % drops 1 drp EYE-LEFT DAILY RF: 0 Referrals: Norm Arreola MD [Primary Care Provider] -
[2019-06-27] MEDS: ACETAMINOPHEN 325 MG TABLET 650 MG PO (20:52)
[2019-06-27 21:58] VITALS: BP 167/75; PULSE 81; RESP 18; O2SAT 96
== END 2019-06-27 21:58 | disposition home or self-care (01) ==
PROVIDERS: Emergency Provider Emergency Medicine; PCP Student in an Organized Health Care Education/Training Program
DX: R07.89 Other chest pain (principal); I10 Essential (primary) hypertension
CPT/HCPCS: 36415; 71045; 80053; 84484; 85025; 93005; 99282; 99285

== ENCOUNTER 2019-07-07 00:28 | Inpatient (IN) | payer MEDICARE, OTHER, SELFPAY ==
[2019-07-07] VITALS (7 sets, daily range): BP systolic 165–200; BP diastolic 49–77; PULSE 81–85; RESP 16–18; TEMP 36.6–36.9; O2SAT 95–99; BMI 20.9
--- NOTE | 2019-07-07 00:33 | ED_ITS ---
HPI - Neuro Symptoms/Deficit General Chief Complaint: Neuro Symptoms/Deficit Stated Complaint: code stroke Time Seen by Provider: 07/07/19 00:29 Source: family () and EMS Mode of arrival: EMS Limitations: altered mental status History of Present Illness HPI Narrative: This is a 74-year-old female comes to the emergency department with altered mental status. Patient was last seen normal about 7:00 a.m. this evening by her . Found her early this morning and states that seem like she had vomited in the house. She had several more episodes. They noted that she was not moving her right side and seemed to have facial droop. She has been unresponsive and not talking or interacting. He states that patient has had a very elevated blood pressure sometimes in the 200 range over the last several da ys. He states she has been seen here about a week or 2 ago for elevated blood pressures. Her architectural draftsman has started carvedilol in order to try to improve her blood pressure. She does have known chronic kidney disease. Patient is is unresponsive at this time. Patient came with paperwork that indicates DNR/comfort measures. Patient's arrived shortly thereafter and confirmed that they do not wish to do any aggressive interventions. He is okay with not doing any imaging or lab work as we suspect she likely had a stroke and making her comfortable and allowing her to pass away. On Anticoagulants: No Related Data Home Medications Medication Instructions Recorded Confirmed Vitamin D3 1 cap PO DAILY 04/18/19 04/28/19 cyclobenzaprine 10 mg PO QPM 04/18/19 04/28/19 latanoprost 1 drp EYE-LEFT DAILY 04/18/19 04/28/19 Previous Rx's Medication Instructions Recorded amlodipine 5 mg tablet 7.5 mg PO QPM #135 tab 06/13/19 Allergies Allergy/AdvReac Type Severity Reaction Status Date / Time No Known Drug Allergies Allergy Verified 04/28/19 11:11 Review of Systems Review of Systems ROS Unobtainable: Unobtainable due to mental status/LOC Patient History Medical History Agitation (10/16/17) Anorexia (Chronic ~2014) B12 deficiency (Chronic) Balance problems (11/04/16) Chronic renal insufficiency (Chronic) Cramps of lower extremity (Chronic 11/02/17) Dementia (Chronic) Dementia with behavioral disturbance (09/06/15) Diabetes (Chronic) Eczema (Chronic) Essential hypertension (Chronic 09/06/15) Failure to thrive in adult (09/06/15) Glaucoma (Chronic) History of stroke (09/06/15) Hyperlipemia (Chronic) Hypertension (Chronic) Macular degeneration, dry (Chronic) Mixed hyperlipidemia (09/06/15) Osteoporosis (09/06/15) Osteoporosis (Chronic) Stroke (Chronic ~1991) Type 2 diabetes mellitus without complication (Chronic 09/06/15) Weakness of both lower extremities (11/04/16) Surgical History History of cataract removal with insertion of prosthetic lens (2007) Status post cholecystectomy (1979) Status post dilation and curettage (1979) Family History Father No problems noted. Mother No problems noted. Social History household members: spouse Smoking Status: Never smoker Exam Narrative Exam Narrative: GEN: well nourished, female, patient is unresponsive, she does have some purposeful movement but does not interact with staff or myself, patient appears to be in moderate distress. She does not follow commands HEENT: Atraumatic, pupils are 2 mm and pinpoint, patient has left gaze deviation, nares are clear, TMs are clear with no fluid, there is no conjunctival pallor. Throat is clear without any exudates, erythema, tonsillar enlargement or uvular deviation, patient has right facial droop. HEART: Regular rate and rhythm without murmur, clicks, rubs. LUNGS:Lungs hep breath sounds bilaterally, patient does have crackles bilaterally. no wheezes, chest moves symmetrically, patient does have some upper airways sounds consistent with aspiration. ABD:bowel sounds normal, soft, non-tender, no guarding, rebound, rigidity, no masses noted, no hepatosplenomegaly. patient has had 2 episodes of brownish radha sis. :No CVA tenderness MSCL: Non-tender, patient has spontaneous movement of her left upper extremity and lower extremity. She even some white her mouth after vomiting. NEURO: patient does not follow commands to test for [id number], heel- oneal, GCS 9 Initial Vital Signs Initial Vital Signs: Vital Signs Pulse Rate 83 07/07/19 00:27 Blood Pressure 200/49 H 07/07/19 00:27 Pulse Oximetry 95 07/07/19 00:27 Scores GCS Robert coma scale eye opening: To sound [place] coma scale verbal response: None Robert coma scale motor response: Localising [place] coma scale total score: 9 NIH Stroke Scale Level of Conciousness: Not alert, requires repeated stimulation to attend, or is obtunded Ask month/age: Answers neither question correctly, aphasic, stuporous, coma Open/close eyes, close hand: Performs one task correctly Best gaze horizontal: Forced deviation or total gaze paresis not overcome Facial palsy: Complete paralysis, absence of movement in the upper and lower face Left arm drift: Some effort against gravity, cannot maintain, drifts down to bed Right arm drift: No movement Left leg drift: No movement Right leg drift: Some effort against gravity, cannot maintain, drifts down to bed Best language: Mute, global aphasia Dysarthria: Severe, unintelligible Course Orders Ordered: ED Orders 07/07/19 00:10 Urinalysis and Microscopic Stat 07/07/19 00:32 EKG-12 Lead Stat 07/07/19 00:45 Basic Metabolic Panel Stat Complete Blood Count AUTO DIFF Stat Partial Thromboplastin Time Stat Prothrombin Time INR Stat Acetaminophen (Tylenol) 650 mg PO Q6HR PRN PRN Reason: As Needed for Fever/Mild Pain Artificial Tears (Artificial Tears) 1 drops EYE-BOTH Q2HR PRN PRN Reason: Dry Eye(s) Bisacodyl (Dulcolax) 10 mg VT DAILY PRN PRN Reason: Constipation Lorazepam (Ativan) 1 mg IV Q1HR PRN PRN Reason: Agitation/Anxiety Metoclopramide HCl (Reglan) 10 mg IV Q8HR MORGAN Naloxone HCl (Narcan) 0.2 mg IV Q2MIN PRN PRN Reason: Opiate Reversal Ondansetron HCl (Zofran) 4 mg IV Q6HR MORGAN Scopolamine (Transderm-Scop) 1 patch TOP Q72H PRN PRN Reason: Secretions Discontinued Medications Ondansetron HCl (Zofran) 4 mg IV NOW ONE Stop: 07/07/19 00:47 Last Admin: 07/07/19 00:50 Dose: 4 mg Documented by: MILAGRO Vital Signs Vital signs: Vital Signs - 8 hr 07/07/19 00:27 07/07/19 00:55 07/07/19 01:00 Temperature 97.8 F Pulse Rate 83 83 85 Respiratory Rate 16 16 Blood Pressure 200/49 H Blood Pressure [Right Arm] 165/69 H 172/65 H Pulse Oximetry 95 99 97 MDM - Neuro Symptoms/Deficit Lab Data Attestation: I reviewed the patient's lab results. Result diagrams: 07/07/19 00:45 07/07/19 00:45 Labs: Lab Results 07/07/19 07/07/19 07/07/19 Range/Units 00:10 00:45 00:45 WBC 15.4 H (4.5-11.0) X10^3/uL RBC 3.61 L (4.0-5.2) X10^6/uL Hgb 11.0 L (12.0-16.0) g/dL Hct 32.9 L (36-46) % MCV 91.3 (80-100) fL MCH 30.6 (26-34) PG MCHC 33.5 (30-36) % RDW 13.6 (11.6-14.8) % Plt Count 228 (150-400) X10^3/uL Neut % (Auto) 93.5 H (50-75) % Lymph % (Auto) 4.1 L (25-40) % Morris % (Auto) 2.1 L (3-14) % Eos % (Auto) 0.1 L (2-4) % Baso % (Auto) 0.2 (0-2) % Neut # (Auto) 05475 H (3033-3787) /uL Lymph # (Auto) 600 L (5217-7269) /uL Morris # (Auto) 300 (0-900) /uL Eos # (Auto) 0 (0-450) /uL Baso # (Auto) 0 (0-100) /uL PT 11.1 (10.1-12.7) SECONDS INR 1.0 (0.9-1.3) APTT 23 L (26.4-36.2) SECONDS Sodium (137-145) mmol/L Potassium (3.4-5.1) mmol/L Chloride (98-107) mmol/L Carbon Dioxide (22-32) mmol/L BUN (7-17) mg/dL Creatinine (0.52-1.04) mg/dL Estimated GFR (>60) mL/min BUN/Creatinine Ratio (6-22) Glucose (80-110) mg/dL Calcium (8.4-10.2) mg/dL Urine Color Yellow Urine Appearance Clear Urine pH 5.5 (4.5-8.0) Ur Specific Commiskey 1.010 (1.000-1.035) Urine Protein 1+ H (Negative) Urine Glucose (UA) 1+ H (Negative) g/dL Urine Ketones Negative (NEGATIVE) Urine Occult Blood 1+ H (Negative) Urine Nitrate Negative (Negative) Urine Bilirubin Negative (NEGATIVE) Urine Urobilinogen 0.2 (0.2) E.U./dL Ur Leukocyte Esterase Negative (NEGATIVE) Urine RBC 0-1/hpf (0-5/HPF) Urine WBC None seen (0-5/HPF) Urine Bacteria None seen (None) Ur Culture Indicated? Cult not indicated 07/07/19 Range/Units 00:45 WBC (4.5-11.0) X10^3/uL RBC (4.0-5.2) X10^6/uL Hgb (12.0-16.0) g/dL Hct (36-46) % MCV (80-100) fL MCH (26-34) PG MCHC (30-36) % RDW (11.6-14.8) % Plt Count (150-400) X10^3/uL Neut % (Auto) (50-75) % Lymph % (Auto) (25-40) % Morris % (Auto) (3-14) % Eos % (Auto) (2-4) % Baso % (Auto) (0-2) % Neut # (Auto) (7701-8088) /uL Lymph # (Auto) (2371-6718) /uL Morris # (Auto) (0-900) /uL Eos # (Auto) (0-450) /uL Baso # (Auto) (0-100) /uL PT (10.1-12.7) SECONDS INR (0.9-1.3) APTT (26.4-36.2) SECONDS Sodium 142 (137-145) mmol/L Potassium 4.7 (3.4-5.1) mmol/L Chloride 111 H (98-107) mmol/L Carbon Dioxide 17 L (22-32) mmol/L BUN 78 H (7-17) mg/dL Creatinine 3.10 H (0.52-1.04) mg/dL Estimated GFR 14.8 L (>60) mL/min BUN/Creatinine Ratio 25.2 H (6-22) Glucose 269 H (80-110) mg/dL Calcium 9.6 (8.4-10.2) mg/dL Urine Color Urine Appearance Urine pH (4.5-8.0) Ur Specific Commiskey (1.000-1.035) Urine Protein (Negative) Urine Glucose (UA) (Negative) g/dL Urine Ketones (NEGATIVE) Urine Occult Blood (Negative) Urine Nitrate (Negative) Urine Bilirubin (NEGATIVE) Urine Urobilinogen (0.2) E.U./dL Ur Leukocyte Esterase (NEGATIVE) Urine RBC (0-5/HPF) Urine WBC (0-5/HPF) Urine Bacteria (None) Ur Culture Indicated? Point of Care Testing Glucose POC 258 MDM Narrative Medical decision making narrative: Spoke with patient's , Mr. Tim. He defers any imaging. We had already obtained labs so these were running but he initially deferred days as well. we discussed plan for comfort measures to be suspect stroke but he is comfortable not obtaining additional information is it will not change our course of therapy. He states this is not totally unexpected with patient's past medical history. He did express some interest in hospice patient is still alive over the next day or so. I spoke with HEAD BAGGAGE PORTER Juan, she accepts with plan for comfort measures. She did see the patient in the department. Discharge Plan Departure Patient Disposition: Admitted As Inpatient Clinical Impression: Acute CVA (cerebrovascular accident), Acute alteration in mental status Referrals: Norm Arreola MD [Primary Care Provider] - Admit Date/Time: 07/07/19 01:27 Admit Provider: Wilda Martinez
--- NOTE | 2019-07-07 00:46 | PC.NURSE ---
See paper chart for NIHSS score.
[2019-07-07] MEDS: ONDANSETRON 4 MG/2 ML INJ IV (00:50)
[2019-07-07 01:06] LABS: Add Manual Diff / Slide Review NO; Basophils Absolute Auto 0 /uL (0-100); Basophils Percent Auto 0.2 % (0-2); Eosinophils Absolute Auto 0 /uL (0-450); Eosinophils Percent Auto 0.1 % (2-4); Hematocrit 32.9 % (36-46); Lymphocytes Absolute Auto 600 /uL (1100-4500); Lymphocytes Percent Auto 4.1 % (25-40); Mean Corpuscular HGB Conc 33.5 % (30-36); Mean Corpuscular Hemoglobin 30.6 PG (26-34); Mean Corpuscular Volume 91.3 fL (80-100); Monocytes Absolute Auto 300 /uL (0-900); Monocytes Percent Auto 2.1 % (3-14); Neutrophils Absolute Auto 14400 /uL (1500-7000); Neutrophils Percent Auto 93.5 % (50-75); Platelet Count 228 X10^3/uL (150-400); Red Blood Cell Count 3.61 X10^6/uL (4.0-5.2); Red Cell Distribution Width 13.6 % (11.6-14.8); White Blood Cell Count 15.4 X10^3/uL (4.5-11.0)
[2019-07-07 01:08] LABS: Prothrombin Time 11.1 SECONDS (10.1-12.7)
[2019-07-07 01:10] LABS: PTT Partial Thromboplastin Tim 23 SECONDS (26.4-36.2)
[2019-07-07 01:11] LABS: BUN Creatinine Ratio 25.2 (6-22); Blood Urea Nitrogen 78 mg/dL (7-17); Calcium 9.6 mg/dL (8.4-10.2); Carbon Dioxide 17 mmol/L (22-32); Chloride 111 mmol/L (98-107); Estimated Glomerular Filt Rate 14.8 mL/min (>60); Glucose 269 mg/dL (80-110); HEMOLYSIS 15 (0-50); Potassium 4.7 mmol/L (3.4-5.1); Sodium 142 mmol/L (137-145)
--- NOTE | 2019-07-07 01:18 | PC.NURSE ---
Pt arrived via [facility]. Code stroke initiated. Pt with glucose 258. POLST DNR with comfort. at side. Per , no head CT. Pt with R sided flaccidity, R facial droop, forced deviation. Pt with spontaneous movement of the L arm. Unable to follow simple commands. Pupils 2mm and unreactive. pt with dark brown emesis in field and additional emesis x 1 on arrival. suction at bedside and used appropriately. pt cleaned and gowned. IV placed and labs sent per order. 16F caldwell placed draining clear yellow and urine sent to lab. Resting in bed. Hospitalist at bedside. awaiting further orders
[2019-07-07 01:19] LABS: Appearance Urine UA CLEAR; Bacteria Urine None Seen; Bilirubin Urine UA NEGATIVE (NEGATIVE); Color Urine UA YELLOW; Glucose Urine UA 1+ g/dL (Negative); Ketones Urine UA NEGATIVE (NEGATIVE); Leukocyte Esterase Urine UA NEGATIVE (NEGATIVE); Nitrite Urine UA NEGATIVE (Negative); Occult Blood Urine UA 1+ (Negative); Protein Urine UA 1+ (Negative); Urobilinogen Urine UA 0.2 E.U./dL (0.2); WBC Urine None Seen (0-5/HPF)
[2019-07-07 01:20] LABS: pH Urine UA 5.5 (4.5-8.0)
[2019-07-07 01:39] LABS: Culture Indicated Urine Cult Not Indicated; RBC Urine 0-1/HPF (0-5/HPF)
--- NOTE | 2019-07-07 01:58 | PM.HP.1 ---
History of Present Illness History of Present Illness Date Patient Seen: 07/07/19 Time Patient Seen: 01:00 Chief complaint: code stroke Narrative: aCrley Tim is a 74 y.o. female who was brought in by the EMS under the code stroke protocol from [place]. She is accompanied by her , Darnell and he provides a history as she is unable to speak. He states she went to bed sometime between 7 and 7:30 pm and seemed normal at that time. He saw her next when he went to bed at around 11 pm and noticed that she had vomited blood. He was unable to get her to respond to him and called EMS. He stated she was unable to speak and appeared to be weak on her left side. He states she had a small stroke in the early and has had cognitive declince since. She has had chronic high blood pressure and approximately 2 years ago was hospitalized for kidney failure, nearly lost her then and then spent about 6 weeks in rehab. He states at that time she started to decline and at this point, declines any intervention and would just like for her to pass naturally. Patient History Medical History Agitation (10/16/17) Anorexia (Chronic ~2014) B12 deficiency (Chronic) Balance problems (11/04/16) Chronic renal insufficiency (Chronic) Cramps of lower extremity (Chronic 11/02/17) Dementia (Chronic) Dementia with behavioral disturbance (09/06/15) Diabetes (Chronic) Eczema (Chronic) Essential hypertension (Chronic 09/06/15) Failure to thrive in adult (09/06/15) Glaucoma (Chronic) History of stroke (09/06/15) Hyperlipemia (Chronic) Hypertension (Chronic) Macular degeneration, dry (Chronic) Mixed hyperlipidemia (09/06/15) Osteoporosis (09/06/15) Osteoporosis (Chronic) Stroke (Chronic ~1991) Type 2 diabetes mellitus without complication (Chronic 09/06/15) Weakness of both lower extremities (11/04/16) Surgical History History of cataract removal with insertion of prosthetic lens (2007) Status post cholecystectomy (1979) Status post dilation and curettage (1979) Family & Social History Family History Father No problems noted. Mother No problems noted. Social History: household members spouse Tobacco & Substance use: Smoking Status Never smoker Meds Home Medications and Allergies Home Medications Medication Instructions Recorded Confirmed Type Vitamin D3 1 cap PO DAILY 04/18/19 04/28/19 History cyclobenzaprine 10 mg PO QPM 04/18/19 04/28/19 History latanoprost 1 drp EYE-LEFT DAILY 04/18/19 04/28/19 History amlodipine 10 mg PO QPM 07/07/19 07/07/19 History Allergies Allergy/AdvReac Type Severity Reaction Status Date / Time No Known Drug Allergies Allergy Verified 04/28/19 11:11 Review of Systems Review of Systems ROS Unobtainable: unobtainable due to mental status Exam Vital Signs (past 8 hours): - 07/07/19 00:27 07/07/19 00:55 07/07/19 01:00 Temperature 97.8 F Pulse Rate 83 83 85 Respiratory Rate 16 16 Blood Pressure 200/49 H Blood Pressure [Right Arm] 165/69 H 172/65 H Pulse Oximetry 95 99 97 07/07/19 01:30 Temperature Pulse Rate 81 Respiratory Rate 16 Blood Pressure Blood Pressure [Right Arm] 166/57 H Pulse Oximetry 99 Oxygen Delivery Method Nasal Cannula Oxygen Flow Rate 3 Narrative Exam Narrative: Gen: arouses to loud noise, ill appearing, otherwise non-responsive 74 y.o. [place] female HEENT: Pupils are pinpoint pupils, non-reactive, normocephalic, atraumatic, non-icteric, oral mucosa pink and moist Neck: supple, Resp: Lungs CTA, non-labored breathing CV: RRR, no murmur or rubs Abd: soft, non-tender, normoactive BTs Skin: no lesions or rashes, dry and intact Neuro: GCS of 7, right sided hemiplegia, significant right sided facial droop, unable to follow commands Extremities: she is not ambulatory Psyche: unable to assess Objective Labs Result Diagrams: 07/07/19 00:45 07/07/19 00:45 Labs: Laboratory Results - last 24 hr 07/07/19 07/07/19 07/07/19 00:10 00:45 00:45 WBC 15.4 H RBC 3.61 L Hgb 11.0 L Hct 32.9 L MCV 91.3 MCH 30.6 MCHC 33.5 RDW 13.6 Plt Count 228 Neut % (Auto) 93.5 H Lymph % (Auto) 4.1 L Antelope % (Auto) 2.1 L Eos % (Auto) 0.1 L Baso % (Auto) 0.2 Neut # (Auto) 51111 H Lymph # (Auto) 600 L Antelope # (Auto) 300 Eos # (Auto) 0 Baso # (Auto) 0 PT 11.1 INR 1.0 APTT 23 L Sodium Potassium Chloride Carbon Dioxide BUN Creatinine Estimated GFR BUN/Creatinine Ratio Glucose Calcium Urine Color Yellow Urine Appearance Clear Urine pH 5.5 Ur Specific [place] 1.010 Urine Protein 1+ H Urine Glucose (UA) 1+ H Urine Ketones Negative Urine Occult Blood 1+ H Urine Nitrate Negative Urine Bilirubin Negative Urine Urobilinogen 0.2 Ur Leukocyte Esterase Negative Urine RBC 0-1/hpf Urine WBC None seen Urine Bacteria None seen Ur Culture Indicated? Cult not indicated 07/07/19 00:45 WBC RBC Hgb Hct MCV MCH MCHC RDW Plt Count Neut % (Auto) Lymph % (Auto) Antelope % (Auto) Eos % (Auto) Baso % (Auto) Neut # (Auto) Lymph # (Auto) Antelope # (Auto) Eos # (Auto) Baso # (Auto) PT INR APTT Sodium 142 Potassium 4.7 Chloride 111 H Carbon Dioxide 17 L BUN 78 H Creatinine 3.10 H Estimated GFR 14.8 L BUN/Creatinine Ratio 25.2 H Glucose 269 H Calcium 9.6 Urine Color Urine Appearance Urine pH Ur Specific [place] Urine Protein Urine Glucose (UA) Urine Ketones Urine Occult Blood Urine Nitrate Urine Bilirubin Urine Urobilinogen Ur Leukocyte Esterase Urine RBC Urine WBC Urine Bacteria Ur Culture Indicated? Assessment & Plan Assessment & Plan narrative: Carley Tim will be admitted for end of life care following a CVA. 1. CVA, acute and present on admission Imaging deferred by while she was in the ED NPO pending speech therapy if patient is able to participate indicated he was not interested in patient being discharged to home and would prefer she remain here on hospice if able Hospice consult in the am 2. Accelerated hypertension, chronic and present on admission Likely due to renal impairment Medications held as patient is NPO and her POA requests no further intervention (see number 1) 3. Stage 4 CKD, chronic, present on admission Her creatinine is 3.1 with a GFR of 14.8 See #1 Patient is admitted inpatient as her stay is anticipated to exceed 2 midnights. FEN: IV saline lock, NPO until is able to participate with speech for a swallow evaluation VTE Prophylaxis: bilateral SCDs Disposition: Unknown at this time. Code status: DNR/DNI/INDUSTRIAL PRODUCTION MANAGER. I asked her if he would like for us to treat her for reversible conditions and he declined and would like for her to pass comfortably. Admission time: 55 minutes Meds reconciled: Not applicable Scores GCS Robert coma scale eye opening: To sound Robert coma scale verbal response: Sounds [place] coma scale motor response: Abnormal flexion Robert coma scale total score: 8 Quality Stroke Onset of Symptoms Date: 07/06/19 Symptom Onset Unknown: Yes Contraindication Antithromb by Day Two: Refused (by and DPOA)
--- NOTE | 2019-07-07 02:12 | PC.NURSE ---
Report given to LUDWIG Bryant.
--- NOTE | 2019-07-07 03:40 | PC.NURSE ---
Pt. admitted to room 206 accompanied by her spouse Uriel. Admit assessment was answered by her spouse, pt. non verbal & not even opening her eyes with verbal & tactile stimuli. Spouse reported she had a prior stroke & recovered, she's talking & walking using her cane or FWW before she had this stroke again. Watch & a ring was given to her spouse to take home, but she's wearing her yellow colored wedding ring. Ruchi patent, RA now & SPO2 95-97%. Will cont. POC & monitor.
[2019-07-07] MEDS: SODIUM CHLORIDE 0.9% FLUSH 10 ML IV ×2 (09:00→20:08)
--- NOTE | 2019-07-07 10:47 | CM.DANOTE ---
Addendum entered by Michaela Whitaker R.N. 07/07/19 14:50: VLAD Barrett, will be taking over the case, due to some social issues regarding placement. Original Note: DCP: Case received, EMR reviewed and met with , Uriel, in patient's room. Patient sleeping. Introduced self and role. Was able to converse with patient's , for patient has dementia, not responding to questions. Obtained some baseline history and living situation from . DCP assessment completed with information currently available. Patient is a 74 year old female who admitted early this morning to the care of the hospitalist team. PCP: Dr. Arreola. Payer: confirmed: Medicare/[employer] for [employer]. Patient came to the hospital via ambulance. She had become non-responsive, and had vomited some blood. A code stroke had been called. Patient has history of dementia, state 4 kidney disease, as well as high blood pressure. She is DNR/comfort care. is wanting patient to be on comfort care, rather than going back home. Had brief conversation with . He mentioned that before this incident occurred, patient was mobile, no DME used, but he was having to prepare meals, cue for showers. He is her primary caregiver. He stated that he does have a daughter that resides in [place] that will be coming to the hospital, and she is a caregiver. Did not discuss as of yet, if he can take her home and care for her, but did discuss hospice. Asked if he was familiar with hospice, which he is not. Updated him on what hospice does, included conversation regarding nursing and social work coming into the home. is open to hospice info visit. Went ahead and called [facility], and spoke with Prachi CHU. Mentioned that regardless of inpatient or observation, room and board there is 305.00 daily, but all other medical is covered. Stated that she is not sure if there are any openings, but can fax over information. Their fax number is: [phone]. Also, spoke to Roxana at [facility], sent referral. Confirmed since she is observation, would have a daily rate 375.00 daily, with 30 days down, with reimbursement if she does not use the whole 30 days. P: VLAD Barrett, is in talking with . Will await conversation and collaborate with her before faxing over information to hospice house, and calling hospice for an info visit. Michaela Whitaker RN/Lead Manufacturing Technician
--- NOTE | 2019-07-07 13:37 | CM.DPC ---
DCP Cont: This NEURODIAGNOSTIC TECHNICIAN working w/LUDWIG Salazar today on DCP efforts. Met w/pt's spouse Darnell P# [phone] and dtr Susana Siegel P# [phone], explained SW role and discussed DCP options. Pt has been non responsive since admission. Pt is currently observation status per UR LUDWIG Daigle and family confirms they do not want additional medical intervention, tests or treatment. Comfort management. Reviewed the following options: -[facility] (researched by LUDWIG Salazar) w/ room and board costing appro $300 daily -Respite care w/Hospice service covered by Medicare, could be approx $150-300 daily, deposit required -SNF, private pay, w/Hospice service, approx $300-400, deposit required -Home w/hospice service, in home cgs Re: options above, spouse Darnell cannot take care of pt at home and has no assistance to do this, he has had a very difficult time taking care of pt leading up to this admission, and that's when she has been able to do things on her own. Dtr lives and works in [place]. Darnell states he does not have any finances to pay for the cost of care, facility or in home. Darnell shares that pt was at [facility] 2 years ago and they were able to secure welfare for her stay of 2 months ? Darnell doesn't think pt has any other insurance besides Medicare and [employer]. LUDWIG Salazar has LM for January at [facility], record of pt? Referral sent to consider for admission if pt had a form of payment for this. Following. R/o current Medicaid coverage? VLAD Kee
--- NOTE | 2019-07-07 15:57 | PC.NURSE ---
Addendum entered by Zarina Arevalo R.N. 07/07/19 22:46: Pt opens eyes when repositioned onto right side. Pulls at blankets with left hand/arm. Nonverbal. Waffle cushion placed under buttocks to protect skin. With pt settled in right side lying position in bed; noted right facial droop. Room air 91-92% with sleep. No emesis this evening or signs of pain or distress. Wall suction set up and prepared in the event it is needed. NPO d/t somnulence s/p CVA. Addendum entered by Zarina Arevalo R.N. 07/07/19 18:22: Pt's spouse has returned home for the evening. Bed alarm set on pt's bed and frequent monitoring by staff. Continuous pulse oximeter in place with 02 sats 93% on room air. No signs of distress or discomfort. Occasional random movement left arm and left leg. PHOTOENGRAVING ETCHER and this pattern chart writer apply lotion to dry, flaky skin on pt's feet BL. Pt does move right leg slightly towards core with this activity. Remains nonverbal. Eyes open and makes eye contact. Oral care by PHOTOENGRAVING ETCHER provided. Hopper secured and draining. NPO. Dr. Juarez sees this patient this evening and was informed of the above. Addendum entered by Zarina Arevalo R.N. 07/07/19 17:26: Pt spontaneously awake with eyes open BL and reaching out with left arm. Spouse is quickly attentive and holds pt's outstretched left hand. Pt remains nonverbal. This pattern chart writer attends at bedside and no intervention needed. Hopper to gravity and draining. Original Note: Pt resting quietly in bed with eyes semi closed. Noted left facial droop. Pt's spouse is present and reports pt in same condition as upon admission. States pt briefly opened eyes, but remains nonverbal. No signs of distress or discomfort noted. Encouraged family members to notify this pattern chart writer if pt is restless or uncomfortable. Bed alarm in place for pt safety.
[2019-07-08 00:05] VITALS: BP 211/109; PULSE 100; RESP 17; TEMP 37.5; O2SAT 96
--- NOTE | 2019-07-08 01:30 | PC.NURSE ---
Addendum entered by Clarissa Graf R.N. 07/08/19 06:57: Patient appears to be covering and uncovering herself with her unaffected hand but does not respond to verbal stimuli or commands. Heart rate is now in the 90's-100's. Original Note: Shift note: Patient is unresponsive to verbal stimulus but will spontaneously open eyes and moves left arm. Heart rate is tachy with rate jumping around from 120's-140's, is irregular to auscultation. Patients lungs have coarse crackles throughout. Patient is within view of the nursing station and will continue to monitor for changes to status.
[2019-07-08 03:35] VITALS: BP 168/91; PULSE 132; RESP 15; TEMP 36.9; O2SAT 90
--- NOTE | 2019-07-08 07:52 | DIET.PN ---
Dietary Progress Note Assessment: 74y F admitted s/p code stroke protocol in [place] referred to nutrition as pt is nonverbal, NPO pending swallow study. Pt's POA requests no intervention to allow pt to pass peacefully. This includes no nutrition support in the form of EN/TPN. Pt may consume POs once assigned diet pending SLT visit. Pt has CKD 4 c GFR of 14 limiting daily PRO to 30g/d (0.6g/kg), 2g sodium limit, 2g K+ limit (K+ 4.7) and 1/2 c dairy limit/d. Recc Renal w/o dialysis diet order with these limits unless pt on comfort care at which point general comfort diet is appropriate. HT: 147.3cm WT: 45.3kg pt has been weight stable for past 6mo per [facility] records BMI:20.9 (low for age) Monitoring/Evaluations: pending results of swallow study
[2019-07-08] MEDS: SODIUM CHLORIDE 0.9% FLUSH 10 ML IV ×2 (08:07→21:14)
[2019-07-08] MEDS: SCOPOLAMINE 1 PATCH TOP (09:16)
--- NOTE | 2019-07-08 10:25 | P.PN_ITS ---
Subjective Subjective Date Patient Seen: 07/08/19 Time Patient Seen: 10:25 Interval history: She is seen today to follow-up her obvious right sided hemiparesis with a presumed large left-sided CVA, hypertension and chronic kidney disease. Her continues to decline workup, logically asking if any suggested tests or intervention would make a difference in her situation and then logically declining anything that is not useful for her current comfort and care. This presents a dilemma for the discharge planners as she does not meet inpatient criteria unless she is actively being evaluated/treated, thus making discharge to care home facility very problematic. We spent quite a bit of time discussing the options which at this point include an emergency application for Medicaid assistance, discharge to [facility] for end of life care, discharge to home with paid caregivers if that can be arranged with her family. Exam Vital Signs (past 8 hours): - 07/08/19 03:35 Temperature 98.4 F Pulse Rate 132 H Respiratory Rate 15 Blood Pressure 168/91 H Pulse Oximetry 90 L Oxygen Delivery Method Room Air Oxygen Flow Rate 0 Narrative Exam Narrative: She is not alert. She does not engage or respond. She neglects the right side of her body when she is moving. There is dense right hemiparesis present. Heart is regular rate and rhythm without murmur. Extremities have no ankle edema. Right hemiparesis quite dense is present. Right ashanti-neglect is also noted. Her mental status is quite depressed. Objective Labs Result Diagrams: 07/07/19 00:45 07/07/19 00:45 Assessment & Plan Assessment & Plan narrative: 1. CVA, acute and present on admission Imaging deferred by while she was in the ED and again today NPO pending speech therapy if patient is ever able to participate indicated he was not interested in patient being discharged to home and would prefer she be cared for in a care home facility or hospice house setting Hospice consult if that becomes the main option. 2. Accelerated hypertension, chronic and present on admission Likely due to renal impairment Medications held as patient is NPO and her POA requests no further intervention (see number 1) 3. Stage 4 CKD, chronic, present on admission Her creatinine is 3.1 with a GFR of 14.8 See #1 Patient is admitted inpatient as her stay will exceed 2 midnights. FEN: IV saline lock, NPO until is able to participate with speech for a swallow evaluation VTE Prophylaxis: bilateral SCDs Disposition: Unknown at this time. Options of emergency application for [place] to enable care home facility care, Hospice House care and home care for an expected life ending prognosis in 1-2 weeks with progressive dehydration. Code status: DNR/DNI/CAFETERIA AIDE. I asked her if he would like for us to treat her for reversible conditions and he declined and would like for her to pass comfortably. Quality Stroke Onset of Symptoms Date: 07/06/19 Symptom Onset Unknown: Yes Contraindication Antithromb by Day Two: Refused (by and DPOA) VTE Deep Vein Thrombosis/Pulmonary Embolism Present on Admission: No
--- NOTE | 2019-07-08 12:14 | PC.NURSE ---
Pt resting in bed, FLACC is 0. Repositioned slightly in bed, Pt has a waffle cushion under her bottom. Provided mouth care. Scope patch behind right ear. Spouse at bedside. O2 sat 95% RA, HR 95. Pt is moving her left arm frequently but right side is flaccid. Pt appears comfortable at this time.
--- NOTE | 2019-07-08 14:54 | CM.DPNOTE ---
Addendum entered by VLAD Kee 07/08/19 15:53: Spoke again w/Trudy/[facility]: she received clinical and said they are full but also wondering about pt's prognosis? Since [facility] is a short term facility stay for end of life management. Trudy intended to call Thursday morning to check in for additional clinical, also the UR/Ins dept will be available Thursday to discuss payment options (?) Original Note: DCP Cont: Spoke w/team in AM rounds and then w/spouse Darnell today, all trying to determine what may be DCP options for pt w/limited funding, expected to live for an additional 1-2 weeks, spouse continues to not want any additional interventions ie imaging or fluids, comfort management now. Discussed the following w/spouse today and completed the following tasks: -Placed call to [facility], UR/Ins. dept not working. Trudy w/intake said they are full now and she cannot answer the questions about foundation/gabriel support for room and board? coverage? This SYSTEMS ARCHITECT faxed clinical packet for review just to see if they felt pt was a candidate for [facility] -Spoke w/Jennifer at [facility], they have no record of completing a Medicaid application w/pt/spouse Spouse Darnell has recollection that [facility] completed [place] for addtl coverage at [facility] but he doesn't know what happened after her stay w.them (did coverage lapse?) -Attempted call to [facility] Aleyda Tavarez P# [phone] and [facility] number P# [phone], both were immediate voicemails, not available today, this SYSTEMS ARCHITECT did not leave a VM today. Question is; is pt already in their system? -Meanwhile provided Darnell w/the [employer] LTC application and w/the Senior Resource Guide. Darnell states he cannot finish the entire [place] today w/o income information from home but can give [place] to SYSTEMS ARCHITECT tomorrow. Darnell and this SYSTEMS ARCHITECT had lengthy conversation about efforts above and reviewed the option, again, of pt returning home w/spouse (dtr to assist if she could take time off?) and hospice service, likely [facility] since pt/spouse live in [place]; Darnell has no agency preference. Darnell suggested he might be able to hire some in home assistance for 1-2 weeks (daytime assist?) but he continued to seem very uneasy about this option, this SYSTEMS ARCHITECT explained that Darnell could never be forced into this option but a hospital stay under observation may also become financially burdensome ? Darnell very reasonable and pleasant throughout this visit and suggested he think more about option of home w/hospice and in home cgs. Darnell was going to call in home cg agencies today to get quotes. Plan unknown at this time. Pt will likely remain here over the weekend, if she survives the weekend, efforts will need to continue Thursday w/Medicaid application/expedited review (?) for SNF/[facility] option vs Home w/Hospice and in home cgs (?) VLAD Kee
--- NOTE | 2019-07-08 16:34 | PC.NURSE ---
Addendum entered by Zarina Arevalo R.N. 07/08/19 18:36: Pt's family members leave for the evening. Staff reposition pt and nursing assessment completed. Pt moves left arm and hand spontaneously. Pt opens eyes with movement. Nonverbal. Waffle cushion under buttocks and BL calf scd's in place. Positioned for comfort on left side. No signs of pain or discomfort with turning or at rest. Bed alarm in place. Room air saturation level 93% with HR 109 per monitor. Original Note: Pt with eyes closed resting quietly in bed. Family is present and reports has applied lotion to pt's legs and moisturizer to pt's lips. Room air oxygen level per monitor 96%. No signs of discomfort or distress. Spouse is present @ bedside. Will continue to monitor for pt's comfort and support family.
--- NOTE | 2019-07-09 02:51 | PC.NURSE ---
cleaned gums did oral moisturizer and chap stick
[2019-07-09] MEDS: SODIUM CHLORIDE 0.9% FLUSH 10 ML IV ×2 (07:44→21:42)
--- NOTE | 2019-07-09 11:19 | PM.PN.1 ---
Subjective Subjective Date Patient Seen: 07/09/19 Time Patient Seen: 11:20 Interval history: She is seen today to follow-up her right hemiparesis and hypertension. Her status was changed to inpatient yesterday based on a review status phone call from our Medicare advisory company. Her has requested that all vital signs and anything that does not contribute to her comfort be stopped. Exam Vital Signs (past 8 hours): Oxygen Delivery Method Room Air Oxygen Flow Rate 0 Narrative Exam Narrative: She remains unresponsive, with dense right hemiparesis and ashanti-neglect. Heart is regular rate and rhythm without murmur Extremities no ankle edema. Objective Labs Result Diagrams: 07/07/19 00:45 07/07/19 00:45 Assessment & Plan Assessment & Plan narrative: 1. CVA, acute and present on admission Imaging appropriately deferred by her as no intervention/testing can be expected to change her prognosis. 2. Accelerated hypertension, chronic and present on admission Likely due to renal impairment Medications held as patient is NPO and her POA requests no further intervention (see number 1) 3. Stage 4 CKD, chronic, present on admission Her creatinine was 3.1 with a GFR of 14.8 See #1 Patient is admitted as an inpatient from observation status on 07/08. FEN: IV saline lock, NPO until is able to participate with speech for a swallow evaluation VTE Prophylaxis: bilateral SCDs Disposition: Potential for [facility] SNF in 1-2 days Code status: DNR/DNI/BLUE PRINTS TRIMMER. Quality Stroke Onset of Symptoms Date: 07/06/19 Symptom Onset Unknown: Yes Contraindication Antithromb by Day Two: Refused (by and DPOA) VTE Deep Vein Thrombosis/Pulmonary Embolism Present on Admission: No
--- NOTE | 2019-07-09 14:47 | CM.DPC ---
DCP Cont: Per JADON Khan, pt info sent to EHR for review and was determined that pt is Inpt Status as of yesterday 07/08/[address] Inpt Order yesterday. Per , pt remains stable and end of life care and remains unresponsive. SW met bedside with pt's spouse Darnell and explained role and spouse provided the completed Medicaid LTC application and requested it be faxed to [facility]. SW faxed copy and left original in pt's d/c folder in her room. SW discussed that pt is now officially Inpt Status and after 3 nights Medicare would cover up to 5 days Comfort pathway at SNF but that pt needs to be thinking about a plan if pt needs ongoing care after 5 days. Spouse states that his first preference is still [facility] and aware that they are currently full and SW discussed that there is a good chance that they will not have an opening in the next couple days and if they do there still could be the cost of room and board. Spouse states that if pt cannot go to [facility] then preference would be for [facility] at d/c for comfort under Medicare for 5 days. Pt will begin figuring out a plan if pt needs longer than 5 days at SNF. SW called [facility] January with update on pt change to Inpt Status as of 07/08/19 and likely need for SNF Comfort under Medicare and Roxana states she will continue reviewing but concerned with plan if pt needs longer than 5 days. SW called [facility] and weekend staff answered and were only able to confirm that they are still currently full but did not have access to clinical information. SW attempted to meet with spouse again to further discuss but spouse not bedside and SW called both home and cell number and left msg. Plan: SW to follow closely for [facility] review for Medicare Comfort pathway but further discussion with spouse needed for solid plan in place if pt needs longer than 5 days of Comfort covered by Medicare. SW to follow for further information from [facility] regarding their ability to accept and if they have any [facility] for room and board as this is spouse's first preference (likely not known until staff available on Thursday). VLAD Hudson
[2019-07-10] MEDS: MORPHINE 2 MG/ML INJ 1 MG IV (06:34)
[2019-07-10] MEDS: SODIUM CHLORIDE 0.9% FLUSH 10 ML IV ×3 (06:35→20:30)
--- NOTE | 2019-07-10 09:22 | P.PN_ITS ---
Subjective Subjective Date Patient Seen: 07/10/19 Time Patient Seen: 09:22 Interval history: She is seen today to follow-up for hypertension and stroke. Morphine was given last night as she appeared to be somewhat uncomfortable. We are no longer following labs or vital signs. She remains a potential discharge to a local longterm facility tomorrow. Exam Vital Signs (past 8 hours): Oxygen Delivery Method Room Air Oxygen Flow Rate 0 Narrative Exam Narrative: She appears less responsive, with obvious dehydration and loss of subcutaneous tissue hydration around her eyes. She is obtunded. Heart is regular rate and rhythm without murmur. Extremities have no ankle edema Objective Labs Result Diagrams: 07/07/19 00:45 07/07/19 00:45 Assessment & Plan Assessment & Plan narrative: 1. CVA, acute and present on admission Imaging appropriately deferred by her as no intervention/testing can be expected to change her prognosis. She appears much closer to terminal state today than she did yesterday and may not survive until SNF discharge tomorrow. 2. Accelerated hypertension, chronic and present on admission 3. Stage 4 CKD, chronic, present on admission Patient was admitted as an inpatient from observation status on 07/08. Disposition: Potential for [facility] SNF in 1-2 days Code status: DNR/DNI/AVIATION SURVIVAL TECHNICIAN. Quality Stroke Onset of Symptoms Date: 07/06/19 Symptom Onset Unknown: Yes Contraindication Antithromb by Day Two: Refused (by and DPOA) VTE Deep Vein Thrombosis/Pulmonary Embolism Present on Admission: No
--- NOTE | 2019-07-10 16:02 | CM.DANOTE ---
Discharge Planning/Care Management CM Discharge Assessment Start: 07/07/19 10:44 Freq: Status: Active Protocol: Document 07/07/19 10:44 (Rec: 07/07/19 11:01 [id number]) Discharge Planning Assessment Advance Directives? Yes Advance Directives on File Yes History Provided By Family Member,Medical Record Prior Living Arrangements House Household Members spouse Type of transporation used prior to Relies on Others admit Willing to Return to Facility? No Independent with ADL's Yes Is patient alert and oriented? No Needs Assistance With Meal Prep,Managing Medications ,Home Chores / Shopping Caregiver for Another No Barriers to Discharge Yes Comment Patient is here on comfort care, prefers that patient not go back home, she is on observation status. Discharge Plan Half-Way Facility Transportation Arrangement Facility, if patient does go to skilled, or family, if she can go home Referrals Initiated Half-Way Additional Comment Initiated a referral for [facility] to start. If patient plan is SNF: Has PASSR been No completed? Comment Patient is currently OBS status Whiteboard Updated in Patient Room with Yes name and ext. # of Director Insurance Review Status In Process Next Review Type Continued Stay Review 07/07/19 10:47 CM Disch. Assessment Note by Michaela Whitaker Addendum entered by Michaela Whitaker R.N. 07/07/19 14:50: VLAD Barrett, will be taking over the case, due to some social issues regarding placement. Original Note: DCP: Case received, EMR reviewed and met with , Uriel, in patient's room. Patient sleeping. Introduced self and role. Was able to converse with patient's , for patient has dementia, not responding to questions. Obtained some baseline history and living situation from . DCP assessment completed with information currently available. Patient is a 74 year old female who admitted early this morning to the care of the hospitalist team. PCP: Dr. Arreola. Payer: confirmed: Medicare/ for [employer]. Patient came to the hospital via ambulance. She had become non-responsive, and had vomited some blood. A code stroke had been called. Patient has history of dementia, state 4 kidney disease, as well as high blood pressure. She is DNR/comfort care. is wanting patient to be on comfort care, rather than going back home. Had brief conversation with . He mentioned that before this incident occurred, patient was mobile, no DME used, but he was having to prepare meals, cue for showers. He is her primary caregiver. He stated that he does have a daughter that resides in [place] that will be coming to the hospital, and she is a caregiver. Did not discuss as of yet, if he can take her home and care for her, but did discuss hospice. Asked if he was familiar with hospice, which he is not. Updated him on what hospice does, included conversation regarding nursing and social work coming into the home. is open to hospice info visit. Went ahead and called [facility], and spoke with GOLF COURSE KEEPERPrachi. Mentioned that regardless of inpatient or observation, room and board there is 305.00 daily, but all other medical is covered. Stated that she is not sure if there are any openings, but can fax over information. Their fax number is: [phone]. Also, spoke to Roxana at [facility], sent referral. Confirmed since she is observation, would have a daily rate 375.00 daily, with 30 days down, with reimbursement if she does not use the whole 30 days. P: VLAD Barrett, is in talking with . Will await conversation and collaborate with her before faxing over information to [facility], and calling hospice for an info visit. Michaela Whitaker RN/Refrigeration Unit Repairer Initialized on 07/07/19 10:47 - END OF NOTE Discharge Planning/Care Management CM Discharge Assessment Start: 07/07/19 10:44 Freq: Status: Active Protocol: Document 07/07/19 10:44 (Rec: 07/07/19 11:01 [id number]) Discharge Planning Assessment Advance Directives? Yes Advance Directives on File Yes History Provided By Family Member,Medical Record Prior Living Arrangements House Household Members spouse Type of transporation used prior to Relies on Others admit Willing to Return to Facility? No Independent with ADL's Yes Is patient alert and oriented? No Needs Assistance With Meal Prep,Managing Medications ,Home Chores / Shopping Caregiver for Another No Barriers to Discharge Yes Comment Patient is here on comfort care, prefers that patient not go back home, she is on observation status. Discharge Plan Half-Way Facility Transportation Arrangement Facility, if patient does go to skilled, or family, if she can go home Referrals Initiated Half-Way Additional Comment Initiated a referral for [facility] to start. If patient plan is SNF: Has PASSR been No completed? Comment Patient is currently OBS status Whiteboard Updated in Patient Room with Yes name and ext. # of Director Insurance Review Status In Process Next Review Type Continued Stay Review 07/07/19 10:47 CM Disch. Assessment Note by Michaela Whitaker Addendum entered by Michaela Whitaker R.N. 07/07/19 14:50: VLAD Barrett, will be taking over the case, due to some social issues regarding placement. Original Note: DCP: Case received, EMR reviewed and met with , Uriel, in patient's room. Patient sleeping. Introduced self and role. Was able to converse with patient's , for patient has dementia, not responding to questions. Obtained some baseline history and living situation from . DCP assessment completed with information currently available. Patient is a 74 year old female who admitted early this morning to the care of the hospitalist team. PCP: Dr. Arreola. Payer: confirmed: Medicare/[employer] for [employer]. Patient came to the hospital via ambulance. She had become non-responsive, and had vomited some blood. A code stroke had been called. Patient has history of dementia, state 4 kidney disease, as well as high blood pressure. She is DNR/comfort care. is wanting patient to be on comfort care, rather than going back home. Had brief conversation with . He mentioned that before this incident occurred, patient was mobile, no DME used, but he was having to prepare meals, cue for showers. He is her primary caregiver. He stated that he does have a daughter that resides in [place] that will be coming to the hospital, and she is a caregiver. Did not discuss as of yet, if he can take her home and care for her, but did discuss hospice. Asked if he was familiar with hospice, which he is not. Updated him on what hospice does, included conversation regarding nursing and social work coming into the home. is open to hospice info visit. Went ahead and called [facility], and spoke with Prachi CHU. Mentioned that regardless of inpatient or observation, room and board there is 305.00 daily, but all other medical is covered. Stated that she is not sure if there are any openings, but can fax over information. Their fax number is: [phone]. Also, spoke to January at [facility], sent referral. Confirmed since she is observation, would have a daily rate 375.00 daily, with 30 days down, with reimbursement if she does not use the whole 30 days. P: Nena, GOLF COURSE KEEPER, is in talking with . Will await conversation and collaborate with her before faxing over information to hospice house, and calling hospice for an info visit. Michaela Whitaker RN/Refrigeration Unit Repairer Initialized on 07/07/19 10:47 - END OF NOTE
--- NOTE | 2019-07-10 16:03 | CM.DPC ---
DCP/Continued: Reviewed chart. Received update from Dr. Chew in AM rounds. Patient significantly gotten worse over the last 12hrs. Currently no urine output and Dr. Chew expects her to within the next 24hrs. Patient admitted after CVA. BLUEPRINT CLERK placed call to [facility] re: bed? Per previous notes, [facility] is considering patient under Medicare comfort measure rule. Apparently [facility] full and spouse unable to care for patient at home. Medicaid application initiated Per January, she believes that they can accept tomorrow 07-11-19 but she needs to get okay from [facility] administration. Other options include another SNF. Attempted to meet with spouse this afternoon but he was not at bedside. Will f/u in AM. P: [facility] for comfort measures under Medicare benefit. If [facility] unable accommodate will need another SNF choice. VLAD Shah
[2019-07-10] MEDS: LORazepam 2 MG/ML INJ 1 MG IV (20:44)
[2019-07-11] MEDS: MORPHINE 2 MG/ML INJ 1 MG IV (08:31)
[2019-07-11] MEDS: SODIUM CHLORIDE 0.9% FLUSH 10 ML IV (08:35)
--- NOTE | 2019-07-11 10:14 | P.DS_ITS ---
History of Present Illness History of Present Illness Date Patient Seen: 07/07/19 Chief complaint: code stroke Narrative: Written by Wilda PRIETO: Carley Tim is a 74 y.o. female who was brought in by the EMS under the code stroke protocol from [place]. She is accompanied by her , Darnell and he provides a history as she is unable to speak. He states she went to bed sometime between 7 and 7:30 pm and seemed normal at that time. He saw her next when he went to bed at around 11 pm and noticed that she had vomited blood. He was unable to get her to respond to him and called EMS. He stated she was unable to speak and appeared to be weak on her left side. He states she had a small stroke in the early 90s and has had cognitive declince since. She has had chronic high blood pressure and approximately 2 years ago was hospitalized for kidney failure, nearly lost her then and then spent about 6 weeks in rehab. He states at that time she started to decline and at this point, declines any intervention and would just like for her to pass naturally. Discharge Providers Provider Date of admission: 07/08/19 17:18 Discharge Date: 07/11/19 Primary care physician: Norm Arreola MD Consults: 07/07/19 19:38 Consult to Dietitian, Adult Routine Comment: Mostly unresponsive with periods of wakefulness Reason For Exam: nonverbal s/p cva. Swallow eval not done. NPO. Discharge provider: Dianne Avendano DO Summary Hospital Course Discharge Diagnosis: 1. Palliative Care. 2. Acute CVA, present on admission. Active. 3. Hypertension, chronic, present on admission. Stable. 4. Stage 4 CKD, chronic, present on admission. Stable. Hospital Course: Carley Tim is a 74-year-old female with a past medical history significant for hypertension, hyperlipidemia, previous CVA, diabetes mellitus type 2, non- insulin using, and dementia who presented to the ED for stroke-like symptoms including right-sided hemiparesis and facial droop. 1. Palliative Care. -Continued comfort care medications including: Morphine 5 mg every 4 hours as needed for pain, discomfort, or air hunger; lorazepam 0.5 mg every 6 hours as needed for agitation, and scopolamine patch every 72 hours as needed for excessive secretions. 2. Acute CVA, present on admission. Active. -Imaging appropriately deferred by her as no intervention/testing can be expected to change her prognosis. -She appears more imminent with diminished urine output and Bautista-Xiong breathing. 3. Hypertension, chronic, present on admission. Stable. 4. Stage 4 CKD, chronic, present on admission. Stable. Exam Vital Signs (past 8 hours): Oxygen Delivery Method Room Air Oxygen Flow Rate 0 Narrative Exam Narrative: General: Elderly cachectic female lying in bed and no acute distress, right- sided hemiplegia, does not arouse to noxious stimuli, slightly agitated and moving left side, occasional Bautista-Xiong breathing. HEENT: Normocephalic, atraumatic. External ears without defect. Pupils pinpoint, fixated, equal, round. Neck: Supple with full range of motion. No jugular venous distension. No bruits. No lymphadenopathy or thyromegaly. Cardiovascular: Regular rhythm, tachycardic, without murmurs, rubs, or gallops appreciated. Pulmonary: Clear to auscultation bilaterally without crackles, wheezes, or rhonchi. Normal respiratory effort with no use of accessory muscles. Abdomen: Soft, bowel sounds present, appears to be nontender, nondistended. Extremities: No clubbing, cyanosis, or edema. Skin: Normal temperature, turgor, and texture; no rash, ulcers, or subcutaneous nodules appreciated. Neurological: Right-sided hemiparesis and facial droop. Does not arouse to noxious stimuli. Nonverbal. Objective Labs Result Diagrams: 07/07/19 00:45 07/07/19 00:45 Discharge Plan Discharge Plan Patient Disposition: SNF Transfer to: [facility] Under care of provider: director physical Discharge orders & Medications Prescriptions: New polyvinyl alcohol [Tears Again (PVA)] 1.4 % Drops 1 drops EYE-BOTH Q2HR PRN (Reason: Dry Eye(S)) Qty: 1 RF: 0 scopolamine base [Transderm-Scop] 1 mg over 3 days Patch 3 Day 1 patch topical Q72H PRN (Reason: Secretions) Qty: 10 RF: 0 morphine 10 mg/5 mL solution 5 mg PO Q4H PRN (Reason: pain, airhunger) Qty: 15 RF: 0 lorazepam 2 mg/mL concentrate 0.5 mg PO Q6H PRN (Reason: agitation) Qty: 30 RF: 0 Discontinued Vitamin D3 1 cap PO DAILY RF: 0 cyclobenzaprine 10 mg tablet 10 mg PO QPM RF: 0 latanoprost 0.005 % drops 1 drp EYE-LEFT DAILY RF: 0 amlodipine 5 mg tablet 10 mg PO QPM RF: 0 carvedilol [Coreg] 3.125 mg tablet 3.125 mg PO BID RF: 0 latanoprost 0.005 % drops 1 drp EYE-LEFT ONCE HS RF: 0 Follow up/Referrals: Norm Arroela MD [Primary Care Provider] - Diet/Activity/Treatments Diet: Nothing by Mouth Catheter: 2-way Hopper Discharge Data Primary Care Provider: Norm Arreola Quality Stroke Onset of Symptoms Date: 07/06/19 Symptom Onset Unknown: Yes Contraindication Antithromb by Day Two: Refused (by and DPOA) VTE Deep Vein Thrombosis/Pulmonary Embolism Present on Admission: No
--- NOTE | 2019-07-11 11:40 | CM.DPC ---
DCP/continued: Reviewed chart. Received notification from provider in AM rounds that patient medically stable to transfer to SNF for continued comfort care. Placed call to January at [facility]. She confirms that they can accept today. January requesting orders and copy of Medicaid application be faxed. Competed both including PASRR. Patient unable to transfer via w/c secondary to CVA. Therefore, placed call to [facility]. Medical necessity form completed and signed by both provider and MATHEMATICS FACULTY MEMBER. Patient scheduled to be picked up at approximately 1:00pm. RN updated. Met with patient's spouse/Uriel at bedside. He is aware and agreeable to plan. Spouse aware if patient were to remain at [facility] for more than five days that patient/spouse will be responsible for payment. P: [facility] today. Patient scheduled to be picked up at approximately 1:00pm. VLAD Shah
[2019-07-11] MEDS: MORPHINE 2 MG/ML INJ IV (12:32)
--- NOTE | 2019-07-11 13:38 | PC.NURSE ---
Discharge Pt is non-responsive. No movement except spastic, non-purposeful movements of Left arm. RR elevated (25-30) and brow furrowed. Medicated with IV morphine 2x. Pt appeared calmer after admin. Report called to Jolene at [facility]. Pt left with belongings, including her wedding ring on ring finger. left via BLS ambulance. PIV removed prior to d/c.
== END 2019-07-11 13:20 | DRG 64 ==
LOC: ED 01:26 → AC 12:13
PROVIDERS: Admitting Provider Nurse Practitioner Family; Emergency Provider Emergency Medicine; PCP Student in an Organized Health Care Education/Training Program; Visit Provider Nurse Practitioner Family
DX: I63.9 Cerebral infarction, unspecified (principal); R40.20 Unspecified coma; G81.91 Hemiplegia, unspecified affecting right dominant side; N18.4 Chronic kidney disease, stage 4 (severe); I12.9 Hypertensive chronic kidney disease with stage 1 through stage 4 chronic kidney disease, or unspecified chronic kidney disease; R40.2352 Coma scale, best motor response, localizes pain, at arrival to emergency department; R40.2132 Coma scale, eyes open, to sound, at arrival to emergency department; Z51.5 Encounter for palliative care; E78.5 Hyperlipidemia, unspecified; E11.9 Type 2 diabetes mellitus without complications
CPT/HCPCS: 36415; 51701; 80048; 81001; 82962; 85025; 85610; 85730; 96374; 99283; 99285; G0378; J2060; J2270; J2405